=== PATIENT | female | born 1950 | race Caucasian/White ===

== ENCOUNTER 2023-12-22 08:06 | Outpatient (CLI) | payer OTHER, SELFPAY ==
[2023-12-22 08:28] LABS: Basophils Absolute Auto 0.1 K/mm3 (0.0-0.1); Basophils Percent Auto 0.6 % (0.2-1.2); Eosinophils Absolute Auto 0.3 K/mm3 (0-0.3); Eosinophils Percent Auto 3.4 % (0-4.4); Hematocrit 42.4 % (37.0-47.0); Hemoglobin 14.2 g/dL (12.0-15.0); Immature Granulocyte Absolute 0.02 K/mm3 (0.00-0.031); Immature Granulocyte Percent A 0.2 % (0-0.5); Lymphocytes Absolute Auto 2.42 K/mm3 (0.9-3.2); Lymphocytes Percent Auto 29.3 % (18.3-44.2); Mean Corpuscular HGB Conc 33.5 g/dl (32-36); Mean Corpuscular Hemoglobin 29.6 pg (26-34); Mean Corpuscular Volume 88.3 fl (80-100); Mean Platelet Volume 9.9 fl (7.4-10.4); Monocytes Absolute Auto 0.8 K/mm3 (0.1-0.6); Monocytes Percent Auto 9.8 % (2.6-8.5); Neutrophils Absolute Auto 4.7 K/mm3 (1.3-6.7); Neutrophils Percent Auto 56.7 % (45.5-73.1); Platelet Count Result 217 k/mm3 (150-375); Red Cell Distribution Width 12.8 % (11.5-14.5); White Blood Count 8.3 K/mm3 (4.5-10.0)
[2023-12-22 08:37] LABS: Alanine Aminotransferase 17 U/L (6-35); Alkaline Phosphatase 53 U/L (38-126); Anion Gap 3 mmol/L (8-16); Aspartate Amino Transferase 21 U/L (14-36); Bilirubin,Total 0.9 mg/dL (0.2-1.3); Blood Urea Nitrogen 11 mg/dL (7-17); Calcium 8.8 mg/dL (8.4-10.2); Carbon Dioxide 34 mmol/L (22-30); Chloride 102 mmol/L (98-107); Cholesterol 202 mg/dL (0-200); Estimated Glomerular Filt Rate > 60; Glucose 102 mg/dL (65-110); HDL Direct 38 mg/dL; Potassium 4.1 mmol/L (3.4-5.0); Sodium 139 mmol/L (137-145); Triglycerides 216 mg/dL (<150)
[2023-12-22 08:48] LABS: LDL Cholesterol Direct 125 mg/dL
== END 2023-12-22 08:07 | disposition home or self-care (01) ==
LOC: ANHLAB 08:09
PROVIDERS: PCP Family Medicine; Visit Provider Physician Assistant
DX: K21.9 Gastro-esophageal reflux disease without esophagitis (principal); I10 Essential (primary) hypertension; M19.90 Unspecified osteoarthritis, unspecified site; F41.1 Generalized anxiety disorder; F41.9 Anxiety disorder, unspecified; M85.80 Other specified disorders of bone density and structure, unspecified site
CPT/HCPCS: 36415; 80053; 80061; 82306; 84443; 85025

== ENCOUNTER 2025-06-23 11:59 | Outpatient (CLI) | payer OTHER, SELFPAY ==
--- NOTE | ~2025-06-23 | XR_ITS ---
EXAM: XR knee RT 3V DATE: 06/23/2025 12:44 HISTORY: M25.561 - Pain in right knee . COMPARISON: 06/23/2025. FINDINGS: Decreased mineralization. No fracture or dislocation. No lytic or blastic lesion. Mild med ial and lateral joint space narrowing. Mild tricompartmental osteophytosis. No erosion or periosteal change. Soft tissues within normal limits. IMPRESSION: Osteopenia. Mild right knee osteoarthritis. Reviewed, dictated and finalized at location K.
--- NOTE | ~2025-06-23 | XR_ITS ---
XR hip RT 2V w AP pelvis 06/23/2025 12:44 Indication: Pelvic and hip pain Procedure: AP pelvis and 2 views right hip Comparison: 09/10/2013 Findings: There is moderate-severe bilateral osteoarthritis of the hips which has progressed since pr ior study. No acute fracture or traumatic malalignment. Sacral foramen are symmetric. Impression: 1: Mild-moderate bilateral osteoarthritis of the hips. Reviewed, dictated and finalized at location A. Impression: 1: Mild-moderate bilateral osteoarthritis of the hips.
--- NOTE | ~2025-06-23 | XR_ITS ---
XR lumbar spine min 4V 06/23/2025 12:44 Indication: Low back pain Procedure: 5 views lumbar spine Comparison: No prior studies for comparison. Findings: There is disc narrowing at all lumbar levels most severe at L2-3 and L4-5. Vertebral body h eights are maintained. No acute fracture or subluxation. There is facet hypertrophy at L4-5 and L5-S1 . There are right renal stones. No evidence for spondylolisthesis. Impression: 1: Severe lumbar spondylosis. Reviewed, dictated and finalized at location A. Impression: 1: Severe lumbar spondylosis.
--- OUTSIDE RECORDS SUMMARY | 2025-06-23 12:04 | XMS_ITS | Clinical Summary ---
Author Organization [facility] Address [address] [place] [address] Care Team Providers Care Parts Advisor Name Role Phone Kristian Hill MD Primary Care Provider Unavail able Allergies Active Allergy Reactions Criticality Noted Date Comments Calcium Headache Low 08/05/2008 Chlorpheniramine Dizziness,Headache Low 08/05/2008 Dextromethorphan Dizziness,Headache Low 08/05/2008 Sulfa (Sulfonamide Antibiotics) Headache Low 07/2008 Medications dicyclomine (BENTYL) 20 mg Oral Tab Take 1 Tab by mouth 4 times daily before meals and at bedtime. For irritable bowel syndrome 30 Tab 1 8 Active alprazolam (XANAX) 0.5 mg Oral tablet Take 1 Tab by mouth 3 times daily as needed for Anxiety. 30 Tab 1 0 Active bisoprolol-hydr ochlorothiazide (ZIAC) 5-6.25 mg Oral tablet Take 1 Tab by mouth daily. For blood pressure 30 Tab 5 0 Active atorvastatin (LIPITOR) 20 mg Oral tablet Take 0.5 Tabs by mouth daily. for cholesterol 30 Tab 11 0 Active alendronate (FOSAMAX) 70 mg Oral tablet Take 1 Tab by mouth every 7 days. empty stomach before other meds,with 8oz of water, stay upright 30 min 4 Tab 11 0 Active Active Problems Problem Noted Date Diagnosed Date Hyperplastic colon polyp 12/02/2008 Overview (12/02/2008): 12/16/2004 Migraine 10/16/2008 Essential hypertension, benign 08/05/2008 Hyperlipidemia 08/05/2008 Generalized anxiety disorder 08/05/2008 IBS (irritable bowel syndrome) 08/05/2008 Tinnitus 08/05/2008 Resolved Problems Problem Noted Date Diagnosed Date Resolved Date Elevated blood pressure (not hypertension) 10/16/2008 03/03/2009 Immunizations Immunization Administration Dates Next Due (TDVAX)(7 YRS UP) TETANUS AN D DIPHTHERIA TOXOIDS, ADSORBED (2 LF OF TETANUS TOXOID AND 2 LF OF DIPHTHERIA TOXOID), 0.5ML (PF), IM 11/27/2001 Social History Tobacco Use Types Packs/Day Years Used Date Smoking Tobacco: Never Comments No Sex and Gender Information Value Date Recorded Sex Assigned at Not on file 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 Gender Identity Not on file Sexual Orientation Not on file Last Filed Vital Signs Vital Sign Reading Time Taken Comments Blood Pressure 120/70 04/07/2010 10:58 AM CDT Pulse 59 04/07/2010 10:58 AM CDT Temperature - - Respiratory Rate - - Oxygen Saturation - - Inhaled Oxygen Concentration - - Weight 55.8 kg (123 lb) 04/07/2010 10:58 AM CDT Height 161.9 cm (5' 3.75) 08/05/2008 9:35 AM CD T Body Mass Index 21.28 08/05/2008 9:35 AM CDT Plan of Treatment Health Maintenance Due Date Last Done Comments FIT-DNA Q 3 years 1997 FIT/FOBT Q 1 year 1997 Flex Sig/CT Colonography Q 5 years 1997 DTAP/TDAP/TD VACCINES (1 - Tdap) 11/28/2001 11/27/19 02 PNEUMOCOCCAL VACCINE 50+ YEA RS (1 of 1 - PCV) 2002 ZOSTER VACCINE (1 of 2) 2002 BREAST CANCER SCREENING 04/14/2011 04/14/20 10, 04/14/2010, 03/03/2009, Additional history exists COLORECTAL SCREENING 05/10/2015 05/10/2010, 05/10/2010, 11/27/2004 Colorectal Cancer Screening 05/10/2015 OSTEOPOROSIS SCREENING 2017 INFLUENZA VACCINE (#1) 2025 RSV VACCINE (60+ or ) (1 - 1-dose 75+ series) 2027 Procedures Procedure Name Priority Date/Time Associated Diagnosis Comments ENDOSCOPY, COLON, DIAGNOSTIC Routine 05/10/2010 MAMMO SCREENING BILAT Routine 04/14/2010 from Last 3 Months or Most Recently Relevant to Health Maintenance Results * ENDOSCOPY, COLON, DIAGNOSTIC (05/10/2010) Historical Provider GI PROCEDURE ORDERABLES Parvin l Result EXTERNAL LAB * MAMMO SCREENING BILAT (04/14/2010) Anatomical Region Laterality Modality Breast Bilateral Other Historical Provider MAMMO ORDERABLES Final Resul t from Last 3 Months or Most Recently Relevant to Health Maintenance Care Teams Parts Advisor Relationship Specialty Start Date End Date Kristian Hill MD PCP - General 03/04/09
--- OUTSIDE RECORDS SUMMARY | 2025-06-23 12:04 | XMS_ITS | Encounter Summary ---
Author Organization [employer] [facility] Address 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 Gender Identity Not on file Sexual Orientation Not on file documented as of this encounter Plan of Treatment Not on file documented as of this encounter Procedures Procedure Name Priority Date/Time Associated Diagnosis Comments US ABDOMEN LIMITED Timed Study 11/19/2008 8: 45 AM METER INSTALLER AND REMOVER documented in this encounter Results * US ABDOMEN LIMITED (11/19/2008 8:45 AM METER INSTALLER AND REMOVER) Anatomical Region Laterality Modality Abdomen Other 11/19/2008 8:45 AM METER INSTALLER AND REMOVER Narrative 11/19/2008 10:13 AM METER INSTALLER AND REMOVER [facility] [address], [place] [address] Admit Date: 11/19/2008 NIKIA CAROLINA Sex: F Admit Prov: ELZBIETADIANN Date: 1950 Primary Care Prov: ELZBIETA DIANN Rivers CMRN: [id number] Room: [facility] SSN: [id number] IMAGING SERVICES Ordering Prov: N/A Accession Number: [id number] Interpretation ULTRASOUND ABDOMEN LIMITED 11/19/2008 History: Right upper quadrant pain. FINDINGS: Limited ultrasound examination of the upper abdomen was performed. The gallbladder is free of stones and the wall thickness is normal. The common bile duct is normal in caliber. The liver is normal in size, contour and echogenicity and there are no focal defects or intrahepatic biliary dilation. Portal and hepatic venous flow appears normal. There is no pancreatic mass or inflammation. There is no sign of ascites. IMPRESSION: Normal exam. . Dictated by: USHA CANELA 11/19/2008 08:50 Electronically signed by: USHA CANELA 11/19/2008 10:11 Transcribed: 11/19/2008 09:48 AMK Procedure Note Usha Canela MD - 11/19/2008 [facility] [address], [place] [address] Admit Date: 11/19/2008 NIKIA CAROLINA Sex: F Admit Prov: DIANN HILL Date: 1950 Primary Care Prov: DIANN HILL CMRN: [id number] Room: [facility] SSN: [id number] IMAGING SERVICES Ordering Prov: N/A Interpretation ULTRASOUND ABDOMEN LIMITED 11/19/2008 History: Right upper quadrant pain. FINDINGS: Limited ultrasound examination of the upper abdomen was performed. The gallbladder is free of stones and the wall thicknessis normal. The common bile duct is normal in caliber. The liver isnormal in size, contour and echogenicity and there are no focal defects or intrahepatic biliary dilation. Portal and hepatic venous flowappears normal. There is no pancreatic mass or inflammation. There is no signof ascites. IMPRESSION: Normal exam. . Dictated by: USHA CANELA 11/19/2008 08:50 Electronically signed by: USHA CANELA 11/19/2008 10:11 Transcribed: 11/19/2008 09:48 AMK Diann Hill MD ORDERABLES Final Result documented in this encounter Visit Diagnoses Diagnosis Abdominal pain, right upper quadrant documented in this encounter Care Teams Multi Media Specialist Relationship Specialty Start Date End Date Diann Hill MD PCP - General 03/04/09 documented as of this encounter
--- OUTSIDE RECORDS SUMMARY | 2025-06-23 12:04 | XMS_ITS | Encounter Summary ---
Author Organization [facility] Address 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 SHE WILL WED WITH AN UPDATE documented in this encounter Plan of Treatment Not on file documented as of this encounter Procedures Procedure Name Priority Date/Time Associated Diagnosis Comments NM HEPATOBIL W PHARM INTERV Timed Study 11/25/2008 1:00 PM MUSCULOSKELETAL PHYSIOTHERAPIST documented in this encounter Results * NM HEPATOBIL W EJECT FRACTION (11/25/2008 1:00 PM MUSCULOSKELETAL PHYSIOTHERAPIST) Anatomical Region Laterality Modality Abdomen Other 11/25/2008 1:00 PM MUSCULOSKELETAL PHYSIOTHERAPIST Narrative 11/25/2008 2:55 PM MUSCULOSKELETAL PHYSIOTHERAPIST [facility] [address], [place] [address] Admit Date: 11/25/2008 NIKIA CAROLINA Sex: F Admit Prov: ELZBIETA DIANN Rivers Date: 1950 Primary Care Prov: DIANN HILL CMRN: [id number] [id number] Ordering Prov: N/A Accession Number: [id number] Interpretation HEPATOBILIARY STUDY WITH CCK CHALLENGE HISTORY: 58-year-old female with abdominal pain. PROCEDURE: After injection with 5.3 mCi of [id number], the patient's abdomen was imaged dynamically in the anterior planar view at 1 minute per frame for 44 minutes. Subsequently, the patient was then injected with 1.1 ug of Cholecystokinin over 30 minutes; dynamic imaging was continued during that time. FINDINGS: Correlation is made with ultrasound imaging dated 11/19/2008. On the pre CCK images, hepatic tracer uptake is prompt and normal. The gallbladder begins to fill with activity by 11 minutes, and the common bile duct is visualized by 9 minutes. Tracer activity is present within the duodenal sweep by 47 minutes. There are no findings on this phase of the study compatible with acute cholecystitis or biliary ductal obstruction. On the post CCK images, there is prompt emptying of tracer activity from the gallbladder. The gallbladder ejection fraction is calculated to be 99 %, a normal value. There are no findings on this portion of the study compatible with chronic or acalculous cholecystitis. IMPRESSION: 1. Normal hepatobiliary study with CCK challenge. 2. No evidence for acute or chronic cholecystitis. . Dictated by: DENNIS AMADO 11/25/2008 14:53 Electronically signed by: DENNIS AMADO 11/25/2008 14:54 Procedure Note Dennis Amado - 11/25/2008 [id number] [place], [place] [address] Admit Date: 11/25/2008 NIKIA CAROLINA Sex: F Admit Prov: DIANN HILL Date: 1950 Primary Care Prov: DIANN HILL CMRN: [id number] [id number] [facility] Ordering Prov: N/A Interpretation HEPATOBILIARY STUDY WITH CCK CHALLENGE HISTORY: 58-year-old female with abdominal pain. PROCEDURE: After injection with 5.3 mCi of [id number], the patient's abdomenwas imaged dynamically in the anterior planar view at 1 minute per framefor 44 minutes. Subsequently, the patient was then injected with 1.1 ug of Cholecystokinin over 30 minutes; dynamic imaging was continued duringthat time. FINDINGS: Correlation is made with ultrasound imaging dated 11/19/2008. On thepre CCK images, hepatic tracer uptake is prompt and normal. Thegallbladder begins to fill with activity by 11 minutes, and the common bile ductis visualized by 9 minutes. Tracer activity is present within theduodenal sweep by 47 minutes. There are no findings on this phase of thestudy compatible with acute cholecystitis or biliary ductal obstruction. On the post CCK images, there is prompt emptying of tracer activityfrom the gallbladder. The gallbladder ejection fraction is calculated tabatha 99 %, a normal value. There are no findings on this portion of thestudy compatible with chronic or acalculous cholecystitis. IMPRESSION: 1. Normal hepatobiliary study with CCK challenge. 2. No evidence for acute or chronic cholecystitis. . Dictated by: DENNIS AMADO 11/25/2008 14:53 Electronically signed by: DENNIS AMADO 11/25/2008 14:54 us Diann Hill MD NM ORDERABLES Final Result documented in this encounter Visit Diagnoses Not on filedocumented in this encounter Care Teams Coffee Host Relationship Specialty Start Date End Date Diann Hill MD PCP - General 03/04/09 documented as of this encounter
== END 2025-06-23 12:00 | disposition home or self-care (01) ==
PROVIDERS: PCP Family Medicine
DX: M85.861 Other specified disorders of bone density and structure, right lower leg (principal); M17.11 Unilateral primary osteoarthritis, right knee; M47.896 Other spondylosis, lumbar region; M16.0 Bilateral primary osteoarthritis of hip
CPT/HCPCS: 72110; 73502; 73562

== ENCOUNTER 2025-08-28 10:28 | Outpatient (CLI) | payer OTHER, SELFPAY ==
--- NOTE | ~2025-08-28 | DEXA_ITS ---
Bone Density Report Name: MARÍA DE LOS SANTOS Age: 75 Sex: Female Ethnicity: White Date of : 1950 Indication: osteopenia; monitoring treatment; parental hip fracture; height loss; hysterectomy; rheumatoid arthritis; Referring Provider: IVONNE SHARPE Study: Bone densitometry was performed. Exam Date: August 28, 2025 Accession number: [id number] Bone Density: Region BMD T-score Z-score Classification AP Spine(L1-L4) 0.825 -2.0 0.3 Osteopenia Femoral Neck (Left) 0.758 -0.8 1.2 Normal Total Hip (Left) 0.716 -1.8 -0.2 Osteopenia Femoral Neck (Right) 0.680 -1.5 0.5 Osteopenia Total Hip (Right) 0.721 -1.8 -0.1 Osteopenia Total Hip Mean 0.719 -1.8 -0.2 Osteopenia World Health Organization criteria for BMD impression classify patients as: Normal (T-score at or above -1.0), Osteopenia (T-score between -1.0 and -2.5), or Osteoporosis (T-score at or below -2.5). 10-year Fracture Risk: FRAX not reported because: Treated for osteoporosis Previous Exams: -- Region Exam Age BMD T-score BMD Change BMD Change Date g/cm2 vs Baseline vs Previous -- AP Spine (L1-L4) 08/28/2025 75 0.825 -2.0 -2.2%# -1.2%# 10/06/2015 65 0.835 -1.9 -1.0% -1.0% 08/02/2012 62 0.844 -1.8 Total Hip(Left) 08/28/2025 75 0.716 -1.8 0.8%# -3.6%# 10/06/2015 65 0.743 -1.6 4.6%* 4.6%* 08/02/2012 62 0.710 -1.9 Total Hip(Right) 08/28/2025 75 0.721 -1.8 -5.4%# -8.4%# 10/06/2015 65 0.787 -1.3 3.3% 3.3% 08/02/2012 62 0.762 -1.5 -- *Denotes significance at 95% confidence level, LSC for AP Spine = 0.022 g/cm2, LSC for Total Hip = 0.027 g/cm2 # Denotes dissimilar scan types or analysis methods Clinical Information Provided by Patient: Parent has had a hip fracture Has rheumatoid arthritis Is being treated for osteoporosis Has used the following medications: Fosamax (i.e. alendronate), Vitamin D Has the following medical conditions: Hysterectomy Patient maximum height was 64 Menopause Age: 35 No regular weight bearing exercise Drinks caffeinated beverages Onset of menses at age 18 Number of children 3 Impression: The patient has low bone mass, based on the Total Spine T-score. The patient has risk factors, including: parental hip fracture. Unable to evaluate interval change due to the use of different scan modes. Discussion: PATIENT UNDER TREATMENT WITH NO SIGNIFICANT BMD LOSS SINCE LAST EXAM. In an untreated patient, BMD typically declines with age. A lack of decline or gain is usually a sign that treatment is efficacious and fracture risk is reduced. It is important to ask patients whether they are taking their medications and to encourage continued and appropriate compliance with their osteoporosis therapies to reduce fracture risk. It is also important to review their risk factors and encourage appropriate calcium and vitamin D intakes, exercise, fall prevention and other lifestyle measures. Follow-Up: Consider a repeat BMD and Vertebral Fracture Assessment (VFA) exam in 2 years or sooner if medically necessary, to reassess this patient's status. Reported by: ANGÉLICA on 08/28/2025 10:59:00 AM. Reviewed, dictated and finalized at location A.
--- NOTE | ~2025-08-28 | MM_ITS ---
EXAMINATION: MM screening oscar BI w viral HISTORY: Screening TECHNIQUE: Craniocaudal and mediolateral oblique 3-D tomosynthesis images were obtained and synthetic 2-D images were generated. CAD analysis was submitted and interpreted. COMPARISON: 03/23/2016 BREAST PARENCHYMAL COMPOSITION: Not dense: There are scattered areas of fibroglandular density. FINDINGS: There is no evidence of suspicious mass, calcification, or architectural distortion to suggest malignancy in either breast. There has been no suspicious interval change. IMPRESSION: 1. No mammographic evidence of malignancy. 2. Recommend routine screening mammography in one year. BI-RADS Category 1: Negative Reviewed, dictated and finalized at location B.
== END 2025-08-28 10:29 | disposition home or self-care (01) ==
LOC: MICIMG 10:30
PROVIDERS: PCP Family Medicine; Visit Provider Nurse Practitioner Adult Health
DX: Z12.31 Encounter for screening mammogram for malignant neoplasm of breast (principal); M85.89 Other specified disorders of bone density and structure, multiple sites; Z78.0 Asymptomatic menopausal state
CPT/HCPCS: 77063; 77067; 77080

== ENCOUNTER 2025-10-14 09:46 | Outpatient (CLI) | payer OTHER, SELFPAY ==
--- NOTE | 2025-10-14 10:41 | ECG_ITS ---
Test Date: 2025-10-14 11:03:33 Measurements Intervals [place] Rate: 51 P: 61 WI: 192 QRS: -19 QRSD: 85 T: 0 QT: 450 QTc: 418 Interpretive Statements SINUS BRADYCARDIA NONSPECIFIC T-WAVE ABNORMALITY CANNOT RULE OUT ANTERIOR MYOCARDIAL INFARCTION ABNORMAL ECG Electronically Signed On 10-14-2025 15:54:38 CAR DESIGNER by Bacilio Mitchell M.D.
[2025-10-14 12:10] LABS: Hematocrit 41.5 % (37.0-47.0); Hemoglobin 14.0 g/dL (12.0-15.0); Immature Granulocyte Percent A 0.6 % (0-0.5); Lymphocytes Absolute Auto 2.11 K/mm3 (0.9-3.2); Mean Corpuscular HGB Conc 33.7 g/dl (32-36); Mean Corpuscular Hemoglobin 30.0 pg (26-34); Mean Corpuscular Volume 89.1 fl (80-100); Nucleated Red Blood Cells Absolute Auto 0.000 K/mm3 (0.0-0.012); Nucleated Red Blood Cells Perc 0.0 % (0.0-0.2); Platelet Count Result 246 k/mm3 (150-375); Red Blood Count 4.66 M/mm3 (4.2-5.4); White Blood Count 8.5 K/mm3 (4.5-10.0)
[2025-10-14 12:17] LABS: Albumin Level 4.4 g/dL (3.5-5.1)
[2025-10-14 12:22] LABS: Anion Gap 8 mmol/L (4-12); Blood Urea Nitrogen 18 mg/dL (7-17); Calcium 9.2 mg/dL (8.4-10.2); Carbon Dioxide 34 mmol/L (22-30); Chloride 98 mmol/L (98-107); Estimated Glomerular Filt Rate > 60; Glucose 76 mg/dL (65-110); Potassium 3.2 mmol/L (3.4-5.0); Sodium 140 mmol/L (137-145)
[2025-10-14 12:49] LABS: Hemoglobin A1C 5.0 % (<5.7)
[2025-10-14 13:22] LABS: MRSA (PCR) NOT DETECTED (NOT DETECTE)
--- OUTSIDE RECORDS SUMMARY | 2025-10-14 17:19 | XMS_ITS | Encounter Summary ---
Author Organization [facility] Address [address] [place] [address] Care Team Providers Care Rabbit Breeder Name Role Phone Bacilio Garrison MD Primary Care Provider [phone] Zion Prasad LOG FEEDER Unavailable [phone] Lance Dial MD Primary Care Provider [phone] Anders Hanks MD Primary Care Provider [phone] Encounter Details Date Type Department Care Team (Late st Contact Info) Description 02/18/2019 CHILDREN'S COUNSELOR ONLY [facility] Medical Group Priority Care - [address] [place] [address] Scanned, Documents Social History Tobacco Use Types Packs/Day Years Used Date Smoking Tobacco: Never Smokeless Tobacco: Never Alcohol Use Standard Drinks/Week Comments No 0 (1 standard drink = 0.6 oz pur e alcohol) AUDIT-C Answer Date Recorded Frequency of Alcohol Consumption Never 01/01/2019 Average Number of Drinks Not on file 019 Frequency of Binge Drinking Not on file 03/2019 Comments Unknown Sex and Gender Information Value Date Recorded Sex Assigned at Not on file Legal Sex Female 8:17 PM CDT Gender Identity Not on file Sexual Orientation Not on file documented as of this encounter Progress Notes * Zscanned, Documents - 02/18/2019 12:00 AM CDT NIKIA CAROLINA MD: ACCT: [id number] ADMIT/SERVICE DATE: 02/18/19 DISCHARGE DATE: 02/18/19 : 1950 PT TYPE: DEP SDC SEX: F ORD SITE: [facility] REPORT OF PATHOLOGICAL EXAMINATION DATE OF SURGERY: 02/18/2019 SURGICAL PATH NO: [id number] DATE OBTAINED: 02/18/2019 DATE RETURNED: 02/19/2019 CHART DOCUMENT I. HEMORRHOIDS: - EXTERNAL HEMORRHOIDS. SPECIMEN: HEMORRHOIDS. GROSS EXAMINATION: THE SPECIMEN IS RECEIVED IN FORMALIN LABELED WITH THE PATIENT'S NAME AND HEMORRHOIDS. THE SPECIMEN CONSISTS OF FIVE FRAGMENTS OF RED/ORANTES SOFT TISSUE RANGING IN SIZE FROM 1 CM UP TO 2.5. ONE POSTAGE MACHINE OPERATOR SECTION IS BISECTED AND SUBMITTED ENTIRELY IN SINGLE CASSETTE. TD/MKP 02/18/2019 02/18/2019 02:39 P MICROSCOPIC EXAMINATION: SECTIONS REVEAL EXTERNAL HEMORRHOIDS. THE TISSUE IS LINED BY BENIGN SQUAMOUS EPITHELIUM. THE UNDERLYING TISSUE SHOWS MARKEDLY DISTENDED BLOOD VESSELS WITH SLIGHT CHRONIC INFLAMMATION. ELECTRONICALLY SIGNED BY DARLING ENRIQUEZ MD 02/19/2019 02:35 P DT: SALONI/RC:02/19/2019 DOC NO: [id number] documented in this encounter Plan of Treatment Not on file documented as of this encounter Visit Diagnoses Not on filedocumented in this encounter Care Teams Rabbit Breeder Relationship Specialty Start Date End Date Bacilio Garrison MD PCP - General INTERNAL MEDICINE 11/01/18 12/30/21 [place] [address] [place] [address] PCP - General FAMILY PRACTICE 12/31/21 01/07/24 Anders Hanks MD [address] [place], [place] [id number] PCP - General FAMILY PRACTICE 01/08/24 Zion Prasad NP [address] [place] [address] Advanced Practice Provider Psychiatry 05/26/21 documented as of this encounter
--- OUTSIDE RECORDS SUMMARY | 2025-10-14 17:19 | XMS_ITS | Clinical Summary ---
Author Organization [facility] Address [address] [place] [address] Care Team Providers Care Data Solutions Architect Name Role Phone Zion Prasad ASSEMBLER HANDBAGS Unavailable [phone] Lena Hanks MD Primary Care Provider [phone] Allergies Active Allergy Reactions Criticality Noted Date Comments Calcium Headache Low 08/05/2008 Chlorpheniramine Dizziness,Headache Low 08/05/2008 Dextromethorphan Dizziness,Headache Low 08/05/2008 Duloxetine Hcl Anxiety Low 01/08/2018 Sertraline Vomiting Low 01/08/2018 Sulfa Antibiotics Headache Low 01/08/2018 Medications diclofenac sodium 1 % gelIndications:Rig ht hip pain,Primary osteoarthritis of right knee,Chronic pain of both shoulders Apply 2 g topically 4 (four) times daily. Apply to shoulders, 4 g to knee. 100 g 5 09/06/20 19 Active Ibuprofen 200 MG capsule Take 200 mg by mouth every 6 (six) hours as needed. Active ALPRAZolam (XANAX) 0.5 MG tabletIndications: Generalized anxiety disorder Take 1 tablet (0.5 mg total) by mouth daily as needed. 30 tablet 06/21/20 23 Active alendronate (FOSAMAX) 70 MG/75ML solutionIndication s:Age-related osteoporosis without current pathological fracture Take 75 mLs (70 mg total) by mouth every 7 days. 299.88 mL 07/13/20 23 Active Additional Information Patient not taking.Reported on 01/26/2024 escitalopram (LEXAPRO) 10 MG tabletIndications: Generalized anxiety disorder TAKE 2 TABLETS BY MOUTH EVERY DAY 180 tablet 1 09/04/20 23 Active bisoprolol-hydroCH LOROthiazide (ZIAC) 5-6.25 MG tabletIndications: Essential hypertension take 1 tablet by mouth every day 90 tablet 01/08/20 24 Active pantoprazole EC (PROTONIX) 40 MG tabletIndications: Esophageal stricture TAKE 1 TABLET BY MOUTH EVERY DAY 90 tablet 01/08/20 25 Active Active Problems Problem Noted Date Diagnosed Date Esophageal stricture 01/29/2024 Personal history of colonic polyps 03/22/2022 Overview (03/22/2022): Added automatically from request for surgery [id number] Age-related osteoporosis wit hout current pathological fracture 11/22/2021 BMI 23.0-23.9, adult 09/06/2019 Esophageal diverticulum 01/11/2018 Esophageal dysmotility 01/11/2018 Pharyngoesophageal dysphagia 01/08/2018 Generalized anxiety disorder 08/28/2017 Overview (11/05/2018): Transitioned From: Anxiety Primary osteoarthritis of right knee 05/31/2017 Spastic colon 05/31/2017 Medication management 11/22/2016 Essential hypertension 11/22/2016 Tinnitus, bilateral 11/22/2016 Migraine 10/16/2008 Resolved Problems Problem Noted Date Diagnosed Date Resolved Date Other hemorrhoids 01/01/2019 09/06/2019 Wears glasses 06/19/2017 08/07/2020 Right hip pain 05/11/2017 06/21/2020 Knee pain, right anterior 12/30/2016 Sciatica of right side 11/22/201609/06 Hyperplastic colon polyp 12/02/2008 Overview (09/06/2019): Overview: 12/16/2004 Immunizations Immunization Administration Dates Next Due Fluzone High Dose (IIV, triv alent, 0.5mL) 10/04/2024 Fluzone High Dose - >Age 65 (Prefilled Syringe) 09/02/2022,08/23/2021,09/07/2020,2018,11/05/2018 Influenza (Generic) 09/15/2013 Influenza Adult (Generic) 09/25/2023,09/03/2022, 09/15/2013 PFIZER COVID-19 (ORIGINAL FORMULATION, PURPLE CAP) mRNA, LNP-S, PF, 30 MCG/0.3 ML DOSE 09/03/2022 PFIZER COVID-19 BIVALENT (12 +) mRNA, LNP-S, PF, 30 MCG/0.3 ML DOSE 09/02/2022 Pneumococcal (Pneumovax 23) 01/08/2020 Pneumococcal (Prevnar 13) 11/05/2018 Td (Tenivac) preservative free 11/27/2001 Family History Medical History Relation Comments Cancer Brother tumor in back, l aurelia cancer, cancer all over body Cancer Father Breast Cancer Mother Diabetes Mother Hypertension Mother Relation Status Comments Brother Father Mother Social History Tobacco Use Types Packs/Day Years Used Date Smoking Tobacco: Never Smokeless Tobacco: Never Tobacco Cessation:Counseling Given: No Comments:no tobacco hx Alcohol Use Standard Drinks/Week Comments Never 0 (1 standard drink = 0.6 oz pur e alcohol) AUDIT-C Answer Date Recorded Frequency of Alcohol Consumption Never 01/01/2019 Average Number of Drinks Not on file 019 Frequency of Binge Drinking Not on file 03/2019 PHQ-2 Answer Date Recorded Patient Health Questionnaire-2 Score 0 01/26/2024 Comments No Sex and Gender Information Value Date Recorded Sex Assigned at Not on file Legal Sex Female 8:17 PM CDT Gender Identity Not on file Sexual Orientation Not on file Last Filed Vital Signs Vital Sign Reading Time Taken Comments Blood Pressure 124/56 03/08/2024 11:58 AM CDT Pulse 62 03/08/2024 11:58 AM CDT Temperature 36.2 C (97.1 F) 03/08/2024 9:05 AM CDT Respiratory Rate 18 03/08/2024 11:58 AM CDT Oxygen Saturation 98% 03/08/2024 11:58 AM CDT Inhaled Oxygen Concentration - - Weight 60.8 kg (134 lb 0.6 oz) 03/08/2024 9:05 A M CDT Height 162.6 cm (5' 4.02) 03/08/2024 9:05 AM CD T Body Mass Index 23 03/08/2024 9:05 AM CDT Plan of Treatment Health Maintenance Due Date Last Done Comments Hepatitis C 1970 DTaP, Tdap and Td Vaccines (1 - Tdap) 11/28/2001 11/27/2001 Zoster Vaccines (1 of 2) 2002 Annual Medicare Wellness Visit 2017 PHQ-2 (Physician [place]) 11/27/2024 01/26/2024 COVID-19 Vaccine ( season) 2025 10/04/2024, 10/20/2023, 09/03/2022, Additional history exists Influenza Adult (#1) 2025 10/04/2024, 09/25/2023, 09/03/2022, Additional history exists Mammogram Screening 01/08/2026 01/08/2024, 02/10/2022, 08/21/2020, Additional history exists RSV Immunization or 60+ Years (1 - 1-dose 75+ series) 2027 Colorectal Cancer Screening Colonoscopy (10 Years) 04/29/2032 04/29/2022, 09/21/2016, 09/21/2016 EGD-Duarte's Surveillance Discontinued 09/21/2016 Pneumococcal Vaccine: 50+ Years Completed 01/08/2020, 11/05/2018 Dexa Scan (General) Completed 01/12/2022, 0 Hepatitis A Vaccines Aged Out No long er eligible based on patient's age to complete this topic Meningococcal B Vaccine Aged Out No l onger eligible based on patient's age to complete this topic Meningococcal Vaccine Aged Out No ted linda eligible based on patient's age to complete this topic RSV Immunizations Under 20 Months Aged Out No longer eligible based on patient's age to complete this topic Procedures Procedure Name Priority Date/Time Associated Diagnosis Comments MG SCREENING W NIKKI NAKITA DIGI Routine 01/08/2024 8:20 AM LPN PRIVATE DUTY Encounter for screening mammogram for breast cancer BONE DENSITY/DEXA Routine 01/12/2022 10: 05 AM LPN PRIVATE DUTY Medication management Age-related osteoporosis without current pathological fracture COLONOSCOPY/EGD GENERIC (SCAN ORDER) Routine 09/21/2016 from Last 3 Months or Most Recently Relevant to Health Maintenance Results * MG SCREENING W NIKKI NAKITA DIGI (01/08/2024 8:20 AM LPN PRIVATE DUTY) Anatomical Region Laterality Modality Breast Bilateral Mammography 01/08/2024 2:37 PM LPN PRIVATE DUTY Narrative 01/08/2024 2:59 PM LPN PRIVATE DUTY EXAMINATION: Digital bilateral screening mammogram with 3-D tomosynthesis EXAM DATE/TIME: 01/08/2024 8:05 AM REASON FOR EXAM: screening for breast cancer COMPARISON: Priors including January 2022, July 2020, January 2019. TECHNIQUE: Digital screening mammography of both breasts was performed in addition to 3-D Tomosynthesis technique. This study was read with the assistance of a computer-aided detection system. TISSUE DENSITY: The breast tissue is heterogeneously dense, which may obscure small masses. FINDINGS: No suspicious masses, malignant appearing calcifications, skin thickening or other abnormalities are present. No significant change from the prior exam. =====IMPRESSION:===== No mammographic findings suggestive of malignancy ASSESSMENT: ACR BI-RADS 2 - BENIGN FINDING(S) Recommendation: 1: Routine Screening Bilateral COMMENTS: Ordered By: LENA JULIEN Interpreted By: Nito Byrne MD, 01/08/2024 2:37 PM Lena Julien MD MAMMO Final Result * BONE DENSITY/DEXA (01/12/2022 10:05 AM LPN PRIVATE DUTY) Anatomical Region Laterality Modality Bone Bone Density 01/12/2022 10:1 7 AM LPN PRIVATE DUTY Impressions 01/12/2022 10:20 AM LPN PRIVATE DUTY IMPRESSION: 1. Slight interval improvement in bone density since 11/23/2020, as detailed above. 2. Please above comments for detailed description. Ordered By: JUAN JOSE DIAL Interpreted By: Armida Tamayo, 01/12/2022 10:17 AM Narrative 01/12/2022 10:20 AM LPN PRIVATE DUTY BONE DENSITY/DEXA EXAM DATE/TIME: 01/12/2022 9:54 AM CLINICAL HISTORY: 71-year-old female with history of osteoporosis. Follow-up. COMPARISON: 11/23/2020 FINDINGS: L2-L4: Bone mineral density 0.84 g/sq cm. Prior study 0.79 T score -2.2. Prior study -2.6. Z score 0.0. Prior study -0.5. Very osteopenic range. Moderate fracture risk. Left femoral neck: Bone mineral density 0.76 g/sq cm. Prior study 0.74 T score -0.7. Prior study -0.9. Z score 1.1. Prior study 0.8. Normal young adult female range. Very low fracture risk. Procedure Note Sigifredo Tamayo MD - 01/12/2022 BONE DENSITY/DEXA EXAM DATE/TIME: 01/12/2022 9:54 AM CLINICAL HISTORY: 71-year-old female with history of osteoporosis.Follow-up. COMPARISON: 11/23/2020 FINDINGS: L2-L4: Bone mineral density 0.84 g/sq cm. Prior study 0.79 T score -2.2. Prior study -2.6. Z score 0.0. Prior study -0.5. Very osteopenic range. Moderate fracture risk. Left femoral neck: Bone mineral density 0.76 g/sq cm. Prior study 0.74 T score -0.7. Prior study -0.9. Z score 1.1. Prior study 0.8. Normal young adult female range. Very low fracture risk. IMPRESSION: 1. Slight interval improvement in bone density since 11/23/2020, asdetailed above. 2. Please above comments for detailed description. Ordered By: JUAN JOSE DIAL Interpreted By: Armida Tamayo, 01/12/2022 10:17 AM us Juan Jose Dial MD DEXA Final Resul t * COLONOSCOPY/EGD (09/21/2016) us Documents Scanned SCANNING Edited Result - Final from Last 3 Months or Most Recently Relevant to Health Maintenance Insurance [employer] Care Teams Data Solutions Architect Relationship Specialty Start Date End Date Lena Hanks MD [address] [place] [place] [address] PCP - General FAMILY PRACTICE 01/08/24 iZon Prasad NP [address] [place] [facility] [address] [place] [id number] Advanced Practice Provider Psychiatry 05/26/21
--- OUTSIDE RECORDS SUMMARY | 2025-10-14 17:19 | XMS_ITS | Encounter Summary ---
Author Organization [employer] Address [address] [place] [address] Care Team Providers Care Hog Pusher Name Role Phone Diann Hill MD Primary [...] on file Legal Sex Female 5:36 AM STEAM BOX OPERATOR Gender Identity Not on file Sexual Orientation [...] PHARM INTERV Timed Study 11/25/2008 1:00 PM STEAM BOX OPERATOR documented in this encounter Results * NM HEPATOBIL W EJECT FRACTION (11/25/2008 1:00 PM STEAM BOX OPERATOR) Anatomical Region Laterality Modality Abdomen Other 11/25/2008 1:00 PM STEAM BOX OPERATOR Narrative 11/25/2008 2:55 PM STEAM BOX OPERATOR [facility] [address] [place], [place] [address] Admit Date: 11/25/2008 NIKIA CAROLINA Sex: F Admit Prov: ELZBIETA DIANN Rivers Date: 1950 Primary Care Prov: DIANN HILL CMRN: [id number] [facility] [id number] IMAGING SERVICES Ordering Prov: N/A Accession Number: [id number] Interpretation HEPATOBILIARY STUDY WITH CCK CHALLENGE HISTORY: 58-year-old female with abdominal pain. PROCEDURE: After injection with 5.3 mCi of [id number], the patient's abdomen was imaged dynamically in [...] 14:54 Procedure Note Dennis Amado - 11/25/2008 [address] [place], [place] [address] Admit Date: 11/25/2008 NIKIA CAROLINA Sex: F Admit Prov: DIANN HILL Date: 1950 Primary Care Prov: DIANN HILL CMRN: [id number] [facility] [id number] IMAGING SERVICES Ordering Prov: N/A Interpretation HEPATOBILIARY STUDY WITH CCK CHALLENGE HISTORY: 58-year-old female with abdominal pain. PROCEDURE: After injection with 5.3 mCi of [id number], the patient's abdomenwas imaged dynamically in the [...] on filedocumented in this encounter Care Teams Hog Pusher Relationship Specialty Start Date End Date Diann Hill MD PCP - General 03/04/09 documented as of this encounter
--- OUTSIDE RECORDS SUMMARY | 2025-10-14 17:19 | XMS_ITS | Encounter Summary ---
Author Organization [facility] Address [facility] [place] [address] Care Team Providers Care Wood And Hardware Outfitter Name Role Phone PrasadZion SIGN CARPENTER Unavailable [phone] Lance Dial MD Primary Care Provider [phone] Anders Hanks MD Primary Care Provider [phone] Encounter Details Date Type Department Care Team (Late st Contact Info) Description 02/14/2023 Therapy Plan [facility] [address] [place], [place] [id number] [place] [address] [place], [place] [id number] Social History Tobacco Use Types Packs/Day Years Used Date Smoking Tobacco: Never Smokeless Tobacco: Never Comments:no tobacco hx Alcohol Use Standard Drinks/Week Comments Never 0 (1 standard drink = 0.6 oz pur e alcohol) AUDIT-C Answer Date Recorded Frequency of Alcohol Consumption Never 01/01/2019 Average Number of Drinks Not on file 019 Frequency of Binge Drinking Not on file 03/2019 PHQ-2 Answer Date Recorded Patient Health Questionnaire-2 Score 0 01/20/2023 Comments No Sex and Gender Information Value Date Recorded Sex Assigned at Not on file Legal Sex Female 8:17 PM CDT Gender Identity Not on file Sexual Orientation Not on file COVID-19 Exposure Response Date Recorded In the last 10 days, have yo u been in contact with someone who was confirmed or suspected to have Coronavirus/COVID-19? No / Unsure 01/23/2023 7:49 AM PYROTECHNIC MIXER documented as of this encounter Plan of Treatment Not on file documented as of this encounter Visit Diagnoses Diagnosis Age-related osteoporosis without current pathological fracture- Primary Senile osteoporosis documented in this encounter Additional Health Concerns Assessment Noted Time PHQ-9 Depression Total Score: 0 01/11/20 22 8:21 AM PYROTECHNIC MIXER documented as of this encounter Care Teams Wood And Hardware Outfitter Relationship Specialty [place] [address] [place] [address] PCP - General FAMILY PRACTICE 12/31/21 01/07/24 Anders Hanks MD [address] [place] [address] PCP - General FAMILY PRACTICE 01/08/24 Zion Prasad NP [address] [place] [address] [address] Advanced Practice Provider Psychiatry 05/26/21 documented as of this encounter
--- OUTSIDE RECORDS SUMMARY | 2025-10-14 17:19 | XMS_ITS | Encounter Summary ---
Author Organization [facility] Address [address] [place] [address] Care Team Providers Care Auto Transport Driver Name Role Phone Diann Hill MD Primary [...] on file Legal Sex Female 5:36 AM JUNIOR ART DIRECTOR Gender Identity Not on file Sexual Orientation Not on file documented as of this encounter Plan of Treatment Not on file documented as of this encounter Procedures Procedure Name Priority Date/Time Associated Diagnosis Comments US ABDOMEN LIMITED Timed Study 11/19/2008 8: 45 AM JUNIOR ART DIRECTOR documented in this encounter Results * US ABDOMEN LIMITED (11/19/2008 8:45 AM JUNIOR ART DIRECTOR) Anatomical Region Laterality Modality Abdomen Other 11/19/2008 8:45 AM JUNIOR ART DIRECTOR Narrative 11/19/2008 10:13 AM JUNIOR ART DIRECTOR [facility] [address] [place], [place] [address] Admit Date: 11/19/2008 NIKIA CAROLINA Sex: F Admit Prov: ELZBIETADIANN Date: 1950 Primary Care Prov: ELZBIETA DIANN Rivers CMRN: [id number] Room: [facility] SSN: [id number] IMAGING SERVICES Ordering Prov: N/A Accession Number: [id number] Interpretation ULTRASOUND ABDOMEN LIMITED 11/19/2008 History: Right [...] Procedure Note Usha Canela MD - 11/19/2008 [facility] [address] [place], [place] [address] Admit Date: 11/19/2008 NIKIA CAROLINA Sex: F Admit Prov: DIANN HILL Date: 1950 Primary Care Prov: DIANN HILL CMRN: [id number] Room: [facility] SSN: [id number] IMAGING SERVICES Ordering Prov: N/A Interpretation ULTRASOUND [...] quadrant documented in this encounter Care Teams Auto Transport Driver Relationship Specialty Start Date End Date Diann Hill MD PCP - General 03/04/09 documented as of this encounter
--- OUTSIDE RECORDS SUMMARY | 2025-10-14 17:19 | XMS_ITS | Clinical Summary ---
Author Organization [facility] Address [address] [place] [address] Care Team Providers Care Competitive Intelligence Analyst Name Role Phone Kristian Hill MD Primary [...] on file Legal Sex Female 5:36 AM REGIONAL TRANSPORTATION MANAGER Gender Identity Not on file Sexual Orientation [...] Recently Relevant to Health Maintenance Care Teams Competitive Intelligence Analyst Relationship Specialty Start Date End Date Kristian Hill MD PCP - General 03/04/09
--- OUTSIDE RECORDS SUMMARY | 2025-10-14 17:20 | XMS_ITS | Patient Health Record ---
Author Organization [facility] Address [address] [place] [address] Care Team Providers Care Feeder Driver Name Role Phone Zion Prasad Unavailable [phone] Reason For Referral No Information Medications Medication SIG (Take, Route, Frequency, Duration) Notes Start Date End Date Status Bisoprolol-hydroCHLOR Othiazide 5-6.25 MG Tablet Oral 01/06/2022 Active Escitalopram Oxalate 20 MG Tablet Oral 01/06/2022 Active Diclofenac Sodium 1% Gel Transdermal 01/06/2022 Active Alendronate Sodium 70 MG Tablet Oral 01/06/2022 Active Vitamin B Complex *Pick strength-form from [employer] miniDaT for eRX* 01/06/2022 Active Escitalopram Oxalate 5 MG Tablet Oral 01/06/2022 Active Xanax 0.5 MG Tablet Oral 01/06/2022 Active ALPRAZolam 0.5 MG Tablet Oral 01/06/2022 Active Immunizations Vaccine Route Administration Date Status Comme nts Influenza, high dose seasonal Unknown 11/05/2018 Admini stered Influenza, high dose seasonal Unknown 09/06/2019 Admini stered Influenza, high dose seasonal Unknown 09/07/2020 Admini stered Influenza, seasonal, injecta ble, preservative free, 3 yrs and above Unknown 09/15/2013 Administered Moderna Covid-19 Vaccine 1st dose Unknown 01/07/2021 Ad ministered Moderna Covid-19 Vaccine 1st dose Unknown 02/05/2021 Ad ministered Pneumococcal conjugate PCV 13 Unknown 11/05/2018 Admini stered Pneumococcal polysaccharide PPV23 Unknown 01/08/2020 Ad ministered Social History Social History Additional Details Category Social Info Options Details Migrated Social History Migrated Social History Alcohol Intake: Occasional 11/29/2018,Tobacco Years: Never smoker 11/29/2018 Plan Of Treatment No Information Insurance Providers Payer Name Payer Address Payer Phone Subscriber Number Group Number Insured Name Patient Relationship to Insured Coverage Start Date Coverage End Date [employer] Medicare Replacement/ [employer]vant[employer] - [employer] [address] [place] [phone] [id number] MARÍA DE LOS SANTOS Self - patient is the insured Medical (General) History Surgical History Surgery Date(Month/Year) Hemorrhoidectomy ([id number]) 01/25/2019
== END 2025-10-14 09:47 | disposition home or self-care (01) ==
LOC: ANHSURGERY 09:46
PROVIDERS: Anesthesiology; PCP Family Medicine; Visit Provider Orthopaedic Surgery
DX: M16.0 Bilateral primary osteoarthritis of hip (principal); Z01.818 Encounter for other preprocedural examination
CPT/HCPCS: 36415; 80048; 80307; 82040; 83036; 85025; 86850; 86900; 86901; 87641; 93005

== ENCOUNTER 2025-10-30 08:16 | Outpatient (CLI) | payer OTHER, SELFPAY ==
--- NOTE | ~2025-10-30 | NM_ITS ---
EXAMINATION: NM joanna stress w perfusion DATE: 10/30/2025 11:20 AUTHORIZATION REPRESENTATIVE INDICATION: Abnormal EKG TECHNIQUE: Rest images were obtained following intravenous administration of 11.2 mCi Tc99m tetrofosmin (Myoview). The patient was infused intravenously with Lexiscan (regadenoson). Then, 32 mCi Tc99m tetrofosmin (Myoview) was administered intravenously, and stress images were obtained. Data was recons tructed into short axis and horizontal and vertical long axis SPECT images. Gated SPECT images were also obtained. COMPARISON: None. FINDINGS: There is no definite reversible or fixed perfusion abnormality to suggest ischemia or infarction. There is no segmental wall motion abnormality. Left ventricular ejection fraction measures 68%. IMPRESSION: 1. No definite ischemia or infarct. 2. Normal left ventricular ejection fraction measuring 68%. Reviewed, dictated and finalized at location I. ORIZATION REPRESENTATIVE
--- OUTSIDE RECORDS SUMMARY | 2025-10-30 08:30 | XMS_ITS | Clinical Summary ---
Author Organization [facility] Address [address] 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
--- OUTSIDE RECORDS SUMMARY | 2025-10-30 08:30 | XMS_ITS | Patient Health Record ---
Author Organization [facility] [employer] Address [address] [place] [address] Care Team Providers Care Clin Tech Name Role Phone Zion Prasad Unavailable [phone] Reason For Referral No Information Medications Medication SIG (Take, Route, Frequency, Duration) Notes Start Date End Date Status Bisoprolol-hydroCHLOR Othiazide 5-6.25 MG Tablet Oral 01/06/2022 Active Escitalopram Oxalate 20 MG Tablet Oral 01/06/2022 Active Diclofenac Sodium 1% Gel Transdermal 01/06/2022 Active Alendronate Sodium 70 MG Tablet Oral 01/06/2022 Active Vitamin B Complex *Pick strength-form from Car reviews for eRX* 01/06/2022 Active Escitalopram Oxalate 5 [...] - Hmo [address] [place] [address] [id number] 1 MARÍA DE LOS SANTOS Self - patient is the insured Medical (General) History Surgical History Surgery Date(Month/Year) Hemorrhoidectomy ([id number]) 01/25/2019
--- OUTSIDE RECORDS SUMMARY | 2025-10-30 08:30 | XMS_ITS | Encounter Summary ---
Author Organization [employer] [facility] Address [address] [place] [address] Care Team Providers Care System Sales Consultant Name Role Phone Diann Hill MD Primary [...] on file Legal Sex Female 5:36 AM FREIGHT UNLOADER Gender Identity Not on file Sexual Orientation Not on file documented as of this encounter Plan of Treatment Not on file documented as of this encounter Procedures Procedure Name Priority Date/Time Associated Diagnosis Comments US ABDOMEN LIMITED Timed Study 11/19/2008 8: 45 AM FREIGHT UNLOADER documented in this encounter Results * US ABDOMEN LIMITED (11/19/2008 8:45 AM FREIGHT UNLOADER) Anatomical Region Laterality Modality Abdomen Other 11/19/2008 8:45 AM FREIGHT UNLOADER Narrative 11/19/2008 10:13 AM FREIGHT UNLOADER [facility] [address], [place] [address] Admit Date: 11/19/2008 NIKIA CAROLINA Sex: F Admit Prov: ELZBIETADIANN Date: 1950 Primary Care Prov: ELZBIETA DIANN Rivers CMRN: [id number] Room: [facility] SSN: [id number] IMAGING SERVICES Ordering Prov: N/A Accession Number: [id number] Interpretation ULTRASOUND ABDOMEN LIMITED 11/19/2008 History: Right [...] Procedure Note Usha Canela MD - 11/19/2008 [facility] [address], [place] [address] Admit Date: 11/19/2008 NIKIA CAROLINA Sex: F Admit Prov: DIANN HILL Date: 1950 Primary Care Prov: DIANN HILL CMRN: [id number] Room: [facility] SSN: [id number] IMAGING SERVICES Ordering Prov: N/A Interpretation ULTRASOUND [...] quadrant documented in this encounter Care Teams System Sales Consultant Relationship Specialty Start Date End Date Diann Hill MD PCP - General 03/04/09 documented as of this encounter
--- OUTSIDE RECORDS SUMMARY | 2025-10-30 08:30 | XMS_ITS | Encounter Summary ---
Author Organization [employer] Address [address] [place] [address] Care Team Providers Care Healthcare Administrator Name Role Phone Diann Hill MD Primary [...] on file Legal Sex Female 5:36 AM BIOINFORMATICS COMPUTER SCIENTIST Gender Identity Not on file Sexual Orientation [...] PHARM INTERV Timed Study 11/25/2008 1:00 PM BIOINFORMATICS COMPUTER SCIENTIST documented in this encounter Results * NM HEPATOBIL W EJECT FRACTION (11/25/2008 1:00 PM BIOINFORMATICS COMPUTER SCIENTIST) Anatomical Region Laterality Modality Abdomen Other 11/25/2008 1:00 PM BIOINFORMATICS COMPUTER SCIENTIST Narrative 11/25/2008 2:55 PM BIOINFORMATICS COMPUTER SCIENTIST [facility] [address], [place] [address] Admit Date: 11/25/2008 NIKIA CAROLINA Sex: F Admit Prov: ELZBIETA DIANN Rivers Date: 1950 Primary Care Prov: DIANN HILL CMRN: [id number] Room: [facility]: [id number] IMAGING SERVICES Ordering Prov: N/A Accession Number: [id number] Interpretation HEPATOBILIARY STUDY WITH CCK CHALLENGE HISTORY: 58-year-old female with abdominal pain. PROCEDURE: After injection with 5.3 mCi of [id number]-[id number], the patient's abdomen was imaged dynamically in [...] 14:54 Procedure Note Dennis Amado - 11/25/2008 [address] [place], [place] [address] Admit Date: 11/25/2008 NIKIA CAROLINA Sex: F Admit Prov: DIANN HILL Date: 1950 Primary Care Prov: DIANN HILL CMRN: [id number] Room: [facility]: [id number] IMAGING SERVICES Ordering Prov: N/A Interpretation HEPATOBILIARY STUDY WITH CCK CHALLENGE HISTORY: 58-year-old female with abdominal pain. PROCEDURE: After injection with 5.3 mCi of [id number], the patient's abdomenwas imaged dynamically in the [...] on filedocumented in this encounter Care Teams Healthcare Administrator Relationship Specialty Start Date End Date Diann Hill MD PCP - General 03/04/09 documented as of this encounter
--- NOTE | 2025-10-30 08:37 | EST_ITS ---
Patient Info Name: Nikia Carolina Age: 75 years : 1950 Gender: Female Ht: 64 in Wt: 134 lbs BSA: 1.66 m2 HR: 59 bpm BP: 159 / 85 mmHg Exam Date: 10/30/2025 8:37 AM Patient Status: O Admit Date: 10/30/2025 Exam Type: CA stress joanna w NM A regadenoson stress test was performed. Staff Referring Physician: Ollie Good Attending Provider: Ollie Good Exercise Technologist: Natalie Aldridge Exercise Physician: Rock Orozco DO Summary 1. 1. Negative lexiscan stress test for ischemic ST changes by ECG criteria. 2. 2. Baseline hypertension. 3. 3. Nuclear scan to follow and will be reported separately. Please correlate with it. 4. 4. Patient informed of the above results. Protocol: Lexiscan Stress ECG Details Stage: REST Duration (min): 2 min : 11 sec HR (bpm): 58 SBP (mmHg): 159 DBP (mmHg): 85 Stage: REST Duration (min): 3 min : 44 sec HR (bpm): 76 SBP (mmHg): 159 DBP (mmHg): 85 Stage: STAGE 1 Duration (min): 0 min : 59 sec HR (bpm): 87 SBP (mmHg): 171 DBP (mmHg): 80 Stage: RECOVERY Duration (min): 1 min : 0 sec HR (bpm): 89 SBP (mmHg): 171 DBP (mmHg): 80 Stage: RECOVERY Duration (min): 2 min : 0 sec HR (bpm): 85 SBP (mmHg): 171 DBP (mmHg): 80 Stage: RECOVERY Duration (min): 3 min : 0 sec HR (bpm): 88 SBP (mmHg): 164 DBP (mmHg): 77 Stage: RECOVERY Duration (min): 4 min : 0 sec HR (bpm): 87 SBP (mmHg): 164 DBP (mmHg): 77 Stage: RECOVERY Duration (min): 5 min : 0 sec HR (bpm): 85 SBP (mmHg): 154 DBP (mmHg): 74 Stage: RECOVERY Duration (min): 5 min : 3 sec HR (bpm): 85 SBP (mmHg): 154 DBP (mmHg): 74 Rest HR: 76 bpm Peak HR: 89 bpm Rest Sys BP: 159 mmHg Peak Sys BP: 171 mmHg Max Pred HR: 147 bpm % Max Pred HR: 61 % Target HR: 125 bpm Max RPP: 15,219 bpm*mmHg Termination Reason: Completed protocol Cardiac Symptoms: None Total Time: 1 min : 0 sec Rest Corral BP: 85 mmHg Peak Corral BP: 80 mmHg Total Dose: 0.4 mg Resting ECG Sinus rhythm. Stress ECG No ST changes. Arrhythmias None. Report Signatures
== END 2025-10-30 08:17 | disposition home or self-care (01) ==
PROVIDERS: PCP Family Medicine
DX: R94.31 Abnormal electrocardiogram [ECG] [EKG] (principal)
CPT/HCPCS: 78452; 93017; A9502; J2785

== ENCOUNTER 2025-11-19 00:03 | Day surgery (SDC) | payer OTHER, SELFPAY ==
[2025-10-14 10:05] VITALS: BP 132/66; PULSE 98; RESP 16; TEMP 36.8; O2SAT 98; BMI 24.3
--- NOTE | 2025-10-14 10:22 | PC.NURSE ---
Addendum entered by Lissy Tim RN 11/10/25 10:30: Pt called, stress test ok, proceed with new date and time of surgery as below, meds reconciled too HEATHER Report to the Outpatient Waiting Room, entrance under the green pavilion located off [facility], at time _06:00am on date __11/19/25 . Planned Procedure Time: 07:30am .? Time changes happen often and if your time is changed the preop area will call you the afternoon before. - You and your visitor will be asked to self-screen and do not enter if you have any COVID symptoms. Please call surgeon if you need to reschedule. - A mask is optional within the hospital at this time. Patients may have clear liquids (water, carbonated beverages, clear teas, apple juice) until 3 hours prior to surgery with a maximum of 20 ounces. - No food from midnight until time of surgery and no smoking, or chewing tobacco (or any form of nicotine). No chewing gum, candy or mints. (0430am) Take only the following medications with a SIP of water on the morning of surgery: ____ Xanax as needed DO NOT STOP ANY OF YOUR OTHER PRESCRIPTION MEDICATIONS PRIOR TO SURGERY EXCEPT THE FOLLOWING Hold all vitamins and supplements for 3 days per anesthesiologist. Date of last 11/15/25. Medications to discontinue per physician Hold Meloxicam/NSAIDS/ASPIRIN for [address] Gibbs Date to take last dose 10/16/25 pt been off since then Original Note: [facility] has started construction of its new state of the art ER which will open Spring 2026. With this, we anticipate parking may be a challenge for some our surgical patients and families. Parking spaces are limited but are available for all Surgical, obstetrics, and ER patients sharing this lot. If you arrive and find you are having a hard time finding a parking space, please note that we understand the challenges, please drive around the hospital and park near Hospital Entrance 1. When you enter this entrance, you can ask a volunteer to direct or take you back to the surgical waiting area to check in. We appreciate everyone?s understanding of these expected challenges while we build for your future. Report to the Outpatient Waiting Room, entrance under the green pavilion located off [facility], at time _06:00am on date __10/22/25 . Planned Procedure Time: 07:30am .? Time changes happen often and if your time is changed the preop area will call you the afternoon before. - You and your visitor will be asked to self-screen and do not enter if you have any COVID symptoms. Please call surgeon if you need to reschedule. - A mask is optional within the hospital at this time. Patients may have clear liquids (water, carbonated beverages, clear teas, apple juice) until 3 hours prior to surgery with a maximum of 20 ounces. - No food from midnight until time of surgery and no smoking, or chewing tobacco (or any form of nicotine). No chewing gum, candy or mints. (0430am) Take only the following medications with a SIP of water on the morning of surgery: ____Lexapro and Xanax as needed DO NOT STOP ANY OF YOUR OTHER PRESCRIPTION MEDICATIONS PRIOR TO SURGERY EXCEPT THE FOLLOWING Hold all vitamins and supplements for 3 days per anesthesiologist. Date of last 10/18/25. Medications to discontinue per physician Hold Meloxicam/NSAIDS/ASPIRIN for [address] Gibbs Date to take last dose 10/16/25 Please no make-up, nail citizen of [place], hairspray, perfume, deodorant, or body powder the day of surgery.? No jewelry (including any body piercings) or valuables the day of surgery, leave them at home.? Please take a shower or bath the night before & the morning of, surgery with an antibacterial soap GOLD DIAL. Wear comfortable, loose fitting clothing.? Bring overnight bag, good shoes, walker, phone - Jewelry must be removed prior to entering the operating room.? Rings and piercings that are not removed may be cut off. - The hospital will not accept responsibility for valuables.? - Please leave all valuables, including medications, at home the day of surgery. If you are going home after surgery, a licensed auto haulaway driver must drive you home.? - NO public transportation without another adult if you receive anesthesia. - We recommend that an adult stay with you for 24 hours following discharge. - We also recommend that you do not drive, make important decision, drink alcoholic beverages, or take any drugs that were not prescribed by your health care provider for at least 24 hours after your discharge time. Follow any additional instructions given to you from your surgeon. Telephone instructions given to _Patient and asked if any additional questions and then verbalized understanding. Patient advised to call surgeon office or pre surgery nurse liaison [phone] if any additional questions.
--- NOTE | 2025-10-16 07:06 | PM.IMHP ---
H&P: HPI History of Present Illness Date/Time: 10/16/25 07:06 Chief Complaint: Patient has catching locking and pain of her right hip. She has failed conservative treatment like to consider hip replacement surgery. She has iwzd-zg-meul change. She has arthritis of her right hip his left hip as well. However the right 1 is the 1 with the most symptoms. She has a hard time ambulating has failed conservative treatment. Review of Systems Musculoskeletal: Musculoskeletal: Reports arthralgias, Reports joint swelling and Reports stiffness Neurologic: Reports abnormal gait [facility] Past Medical History Medical History Screening for breast cancer Lumbar back pain HTN (hypertension) Chronic GERD Arthritis Anxiety Surgical History Surgical History History of back surgery Vertebral fractures H/O: hysterectomy Family History Family History Father Cerebrovascular accident Mother Breast cancer Hypertension Depression Daughter Thyroid condition Lupus Social History Social History (Updated 08/12/25 @ 08:13 by Jackelyn Freeman CMA) Smoking status: Never smoker Second hand tobacco smoke exposure: No Alcohol intake: current Alcohol use details: few per months Substance use: never Substance use type: does not use Lack of Transportation: No Lack of Food: Never True Current Housing: I Have Housing Concerned About Future Housing: No Difficulty Paying Gas/Electric Bills: No Difficulty Paying for Meds: No Currently Unemployed: No Education: High School Diploma/GED Difficulty w/ Childcare or Family Care: No Living arrangements: with family Additional living arrangements comments: Occupation/Education: retired Gender identity (if verbalized by the patient): Female Spiritual care concerns: No Meds Home Medications and Allergies Home Medications ?Medication ?Instructions ?Recorded ?Confirmed ?Type pantoprazole 40 mg tablet,delayed 40 mg PO DAILY 12/21/23 10/14/25 History release bisoprolol 5 1 tablet PO DAILY #90 tabs 03/05/25 10/14/25 Rx mg-hydrochlorothiazide 6.25 mg tablet alprazolam 0.5 mg tablet 0.5 mg PO DAILY PRN anxiety #30 06/23/25 10/14/25 Rx tabs meloxicam 15 mg tablet 15 mg PO DAILY #90 tabs 08/25/25 10/14/25 Rx Held on 10/14/25. Instructions: .Provider Order escitalopram oxalate 20 mg tablet 20 mg PO DAILY #90 tabs 09/16/25 10/14/25 Rx (Lexapro) calcium 600 mg capsule 600 mg PO DAILY 10/14/25 10/14/25 History multivitamin with minerals-folic 1 tablet PO DAILY 10/14/25 10/14/25 History acid 12 mcg chewable tablet (Centrum Adults) Allergies Allergy/AdvReac Type Severity Reaction Status Date / Time sertraline (From Zoloft) AdvReac Mild Headache Verified 10/14/25 10:00 Sulfa (Sulfonamide AdvReac Mild Headache Verified 10/14/25 10:00 Antibiotics) Exam Narrative: On exam patient is internal rotation 0 external rotation of 30 on the right. She has a positive Stinchfield test and pain with any manipulation. Neurologically she is grossly intact. She walks with a limp. She has pain with any motion of her hip. Neck: Neck: supple Resp: Effort & Inspection: normal respiratory effort Cardio: Rate: regular rate Rhythm: regular rhythm Radiology Reports: Comments: XRay Report Signed Patient: Nikia Carolina XR hip RT 2V w AP pelvis 06/23/2025 12:44 Indication: Pelvic and hip pain Procedure: AP pelvis and 2 views right hip Comparison: 09/10/2013 Findings: There is moderate-severe bilateral osteoarthritis of the hips which has progressed since prior study. No acute fracture or traumatic malalignment. Sacral foramen are symmetric. Impression: 1: Mild-moderate bilateral osteoarthritis of the hips. Reviewed, dictated and finalized at location A. Hip/Pelvis X-Ray 06/30/25 Knee X-Ray 06/25/25 Lumbar Spine X-Ray 06/30/25 Assessment and Plan Assessment and plan (1) Osteoarthritis, hip, bilateral: Code(s): M16.0 - Bilateral primary osteoarthritis of hip Status: Acute Assessment and Plan: Patient has pxuk-da-efxf arthritis of both hips. The bones are touching. She has failed conservative treatment like to consider hip replacement surgery. The right hip is most symptomatic will proceed with that. I have discussed risks, benefits, limitations, and alternatives with the patient in detail. She understands and agrees would like to proceed.
--- NOTE | 2025-11-13 07:08 | PM.IMHP2 ---
H&P: HPI History of Present Illness Date/Time: 11/13/25 07:08 Chief Complaint: Patient has hip pain right. She has eily-pr-pzcl arthritis of her right hip. She has failed conservative treatment like to consider surgical intervention at this time. Review of Systems Musculoskeletal: Musculoskeletal: Reports myalgias, Reports arthralgias, Reports joint swelling and Reports stiffness Neurologic: Reports abnormal gait [facility] Past Medical History Medical History Screening for breast cancer Lumbar back pain HTN (hypertension) Chronic GERD Arthritis Anxiety Surgical History Surgical History History of back surgery Vertebral fractures H/O: hysterectomy Family History Family History Father Cerebrovascular accident Mother Breast cancer Hypertension Depression Daughter Thyroid condition Lupus Social History Social History (Updated 08/12/25 @ 08:13 by Jackelyn Freeman [facility]) Smoking status: Never smoker Second hand tobacco smoke exposure: No Alcohol intake: current Alcohol use details: few per months Substance use: never Substance use type: does not use Lack of Transportation: No Lack of Food: Never True Current Housing: I Have Housing Concerned About Future Housing: No Difficulty Paying Gas/Electric Bills: No Difficulty Paying for Meds: No Currently Unemployed: No Education: High School Diploma/GED Difficulty w/ Childcare or Family Care: No Living arrangements: with family Additional living arrangements comments: Occupation/Education: retired Gender identity (if verbalized by the patient): Female Spiritual care concerns: No Meds Home Medications and Allergies Home Medications ?Medication ?Instructions ?Recorded ?Confirmed ?Type pantoprazole 40 mg tablet,delayed 40 mg PO DAILY 12/21/23 10/14/25 History release bisoprolol 5 1 tablet PO DAILY #90 tabs 03/05/25 10/14/25 Rx mg-hydrochlorothiazide 6.25 mg tablet alprazolam 0.5 mg tablet 0.5 mg PO DAILY PRN anxiety #30 06/23/25 10/14/25 Rx tabs meloxicam 15 mg tablet 15 mg PO DAILY #90 tabs 08/25/25 10/14/25 Rx Held on 10/14/25. Instructions: .Provider Order escitalopram oxalate 20 mg tablet 20 mg PO DAILY #90 tabs 09/16/25 11/10/25 Rx (Lexapro) calcium 600 mg capsule 600 mg PO DAILY 10/14/25 10/14/25 History multivitamin with minerals-folic 1 tablet PO DAILY 10/14/25 10/14/25 History acid 12 mcg chewable tablet (Centrum Adults) hydrocodone 7.5 mg-acetaminophen 1 tablet PO Q6H PRN pain #40 tabs 10/16/25 11/10/25 Rx 325 mg tablet Allergies Allergy/AdvReac Type Severity Reaction Status Date / Time sertraline (From Zoloft) AdvReac Mild Headache Verified 11/10/25 10:26 Sulfa (Sulfonamide AdvReac Mild Headache Verified 11/10/25 10:26 Antibiotics) Exam Narrative: On exam she has internal rotation 0 external rotation is 20 her right hip. She has a positive Stinchfield test and grinding crepitus and pain with manipulation. She walks with an antalgic gait. Neurologically she is intact. She has pain with any activity and motion. Radiology Reports: Comments: XRay Report Signed Patient: Nikia Carolina : 1950 MR#: [id number] Age: 75 Acct:[id number] Loc: [facility] ADM Date: 06/23/[address]: Ollie Good POLE INSPECTOR Ordering Physician: Ollie Good APN Date of Service: 06/23/25 Procedure(s): XR hip RT 2V w AP pelvis Accession Number(s): [id number] cc: Ollie Good APN; Anders Hanks MD~ XR hip RT 2V w AP pelvis 06/23/2025 12:44 Indication: Pelvic and hip pain Procedure: AP pelvis and 2 views right hip Comparison: 09/10/2013 Findings: There is moderate-severe bilateral osteoarthritis of the hips which has progressed since prior study. No acute fracture or traumatic malalignment. Sacral foramen are symmetric. Impression: 1: Mild-moderate bilateral osteoarthritis of the hips. Reviewed, dictated and finalized at location A. Hip/Pelvis X-Ray 06/30/25 Knee X-Ray 06/25/25 Lumbar Spine X-Ray 06/30/25 Assessment and Plan Assessment and plan (1) Osteoarthritis of right hip: Code(s): M16.11 - Unilateral primary osteoarthritis, right hip Status: Acute Assessment and Plan: Patient has arthritis right hip. He has yldh-qu-koyw changes of the hip. She has failed conservative treatment like to consider surgical intervention. I have discussed the risks, benefits, limitations, and alternatives with her in detail. She understands and agrees like to proceed. Will proceed per her request thank you.
[2025-11-19] VITALS (18 sets, daily range): BP systolic 91–138; BP diastolic 46–89; PULSE 57–88; RESP 10–18; TEMP 36.1–36.7; O2SAT 83–100; BMI 23.3; BMI 10.0
--- NOTE | ~2025-11-19 | XR_ITS ---
EXAMINATION: XR surgery orthopedic DATE: 11/19/2025 09:28 INDICATION: Intraoperative evaluation during right total hip arthroplasty TECHNIQUE: 2 frontal views of the right hip were obtained. COMPARISON: None. FINDINGS: Intraoperative image during a right total hip arthroplasty demonstrate placement of an acetabular component affixed with at least a single screw which appears in near anatomic alignment on the single image provided. A femoral broach is in place with the proximal tip centered over the acetabular component. There is replaced on the subsequent image with placement of a noncemented femoral component with the head in expected position projecting concentrically over the acetabular component. Portions of the pelvis are obscured by a bolster. No fractures in the visualized bones. There is expected lucent soft tissue gas at the operative bed. IMPRESSION: 1. Expected appearance during right total hip arthroplasty. Reviewed, dictated and finalized at location A. ICE ASSOCIATE
--- OUTSIDE RECORDS SUMMARY | 2025-11-19 00:06 | XMS_ITS | Encounter Summary ---
Author Organization [employer] [facility] Address [address] [place] [address] Care Team Providers Care Pharmacy Services Representative Name Role Phone Diann Hill MD Primary [...] on file Legal Sex Female 5:36 AM COMMERCIAL LOAN REVIEWER Gender Identity Not on file Sexual Orientation Not on file documented as of this encounter Plan of Treatment Not on file documented as of this encounter Procedures Procedure Name Priority Date/Time Associated Diagnosis Comments US ABDOMEN LIMITED Timed Study 11/19/2008 8: 45 AM COMMERCIAL LOAN REVIEWER documented in this encounter Results * US ABDOMEN LIMITED (11/19/2008 8:45 AM COMMERCIAL LOAN REVIEWER) Anatomical Region Laterality Modality Abdomen Other 11/19/2008 8:45 AM COMMERCIAL LOAN REVIEWER Narrative 11/19/2008 10:13 AM COMMERCIAL LOAN REVIEWER [facility] [address] [place], [place] [address] Admit Date: 11/19/2008 NIKIA CAROLINA Sex: F Admit Prov: ELZBIETADIANN Date: 1950 Primary Care Prov: ELZBIETA DIANN Rivers CMRN: [id number] [facility] SSN: [id number] IMAGING SERVICES Ordering Prov: N/A Accession Number: [id number] Interpretation ULTRASOUND ABDOMEN LIMITED 11/19/2008 History: Right [...] Procedure Note Usha Canela MD - 11/19/2008 [facility] [address] [place], [place] [address] Admit Date: 11/19/2008 NIKIA CAROLINA Sex: F Admit Prov: DIANN HILL Date: 1950 Primary Care Prov: DIANN HILL CMRN: [id number] [facility] SSN: [id number] IMAGING SERVICES Ordering Prov: N/A Interpretation ULTRASOUND [...] quadrant documented in this encounter Care Teams Pharmacy Services Representative Relationship Specialty Start Date End Date Diann Hill MD PCP - General 03/04/09 documented as of this encounter
--- OUTSIDE RECORDS SUMMARY | 2025-11-19 00:06 | XMS_ITS | Clinical Summary ---
Author Organization [facility] Medicine Address [address] [place] [address] Care Team Providers Care Steam Tender Name Role Phone Kristian Hill MD Primary [...] on file Legal Sex Female 5:36 AM PRODUCT SALES REPRESENTATIVE Gender Identity Not on file Sexual Orientation [...] Recently Relevant to Health Maintenance Care Teams Steam Tender Relationship Specialty Start Date End Date Kristian Hill MD PCP - General 03/04/09
--- OUTSIDE RECORDS SUMMARY | 2025-11-19 00:06 | XMS_ITS | Encounter Summary ---
Author Organization [facility] Address [facility] [place] [address] Care Team Providers Care Construction Skills Teacher Name Role Phone PrasadZion PARADI TENDER Unavailable [phone] Lance Dial MD Primary Care Provider [phone] Anders Hanks MD Primary Care Provider [phone] Encounter Details Date Type Department Care Team (Late st Contact Info) Description 02/14/2023 Therapy Plan [facility] One Day Services [address] [place], [place] [id number] [place] [address] [place], [place] [id number] Social History Tobacco Use Types Packs/Day Years [...] Coronavirus/COVID-19? No / Unsure 01/23/2023 7:49 AM POLICY CHECKER documented as of this encounter Plan of Treatment Not on file documented as of this encounter Visit Diagnoses Diagnosis Age-related osteoporosis without current pathological fracture- Primary Senile osteoporosis documented in this encounter Additional Health Concerns Assessment Noted Time PHQ-9 Depression Total Score: 0 01/11/20 22 8:21 AM POLICY CHECKER documented as of this encounter Care Teams Construction Skills Teacher Relationship Specialty [place] [address] [place] [address] PCP - General FAMILY PRACTICE 12/31/21 01/07/24 Anders Hanks MD [address] [place] [address] PCP - General FAMILY PRACTICE 01/08/24 Zion Prasad NP [address] [place] [address] [address] Advanced Practice Provider Psychiatry 05/26/21 documented as of this encounter
--- OUTSIDE RECORDS SUMMARY | 2025-11-19 00:06 | XMS_ITS | Encounter Summary ---
Author Organization [facility] Address [address] [place] [address] Care Team Providers Care Senior Living Advisor Name Role Phone Bacilio Garrison MD Primary Care Provider [phone] Zion Prasad CIA AGENT Unavailable [phone] Lance Dial MD Primary Care Provider [phone] Anders Hanks MD Primary Care Provider [phone] Encounter Details Date Type Department Care Team (Late st Contact Info) Description 02/18/2019 CASE REVIEWER ONLY [facility] Medical [facility] - [address] [place] [address] Scanned, Documents Social History Tobacco [...] 12:00 AM CDT NIKIA CAROLINA MD: ACCT: [id number] ADMIT/SERVICE DATE: 02/18/19 DISCHARGE DATE: 02/18/19 : 1950 PT TYPE: DEP SDC SEX: F ORD SITE: [facility] REPORT OF PATHOLOGICAL EXAMINATION DATE OF SURGERY: 02/18/2019 SURGICAL PATH NO: [id number] DATE OBTAINED: 02/18/2019 DATE RETURNED: 02/19/2019 CHART DOCUMENT I. HEMORRHOIDS: - EXTERNAL HEMORRHOIDS. SPECIMEN: HEMORRHOIDS. GROSS EXAMINATION: THE SPECIMEN IS RECEIVED IN FORMALIN LABELED WITH THE PATIENT'S NAME AND HEMORRHOIDS. THE SPECIMEN CONSISTS OF FIVE FRAGMENTS OF RED/ORANTES SOFT TISSUE RANGING IN SIZE FROM 1 CM UP TO 2.5. ONE ASSURANCE AUDITOR SECTION IS BISECTED AND SUBMITTED ENTIRELY IN SINGLE CASSETTE. TD/MKP 02/18/2019 02/18/2019 02:39 P MICROSCOPIC EXAMINATION: SECTIONS REVEAL EXTERNAL HEMORRHOIDS. THE TISSUE IS LINED BY BENIGN SQUAMOUS EPITHELIUM. THE UNDERLYING TISSUE SHOWS MARKEDLY DISTENDED BLOOD VESSELS WITH SLIGHT CHRONIC INFLAMMATION. ELECTRONICALLY SIGNED BY DARLING ENRIQUEZ MD 02/19/2019 02:35 P DT: SALONI/RC:02/19/2019 DOC NO: [id number] documented in this encounter Plan of Treatment Not on file documented as of this encounter Visit Diagnoses Not on filedocumented in this encounter Care Teams Senior Living Advisor Relationship Specialty Start Date End Date Bacilio Garrison MD PCP - General INTERNAL MEDICINE 11/01/18 12/30/21 [place] [address] [place] [address] PCP - General FAMILY PRACTICE 12/31/21 01/07/24 Anders Hanks MD [address] [place], [place] [id number] PCP - General FAMILY PRACTICE 01/08/24 Zion Prasad NP [address] [place] [place] [address] Advanced Practice Provider Psychiatry 05/26/21 documented as of this encounter
--- OUTSIDE RECORDS SUMMARY | 2025-11-19 00:06 | XMS_ITS | Encounter Summary ---
Author Organization [facility] [employer] Address [address] [place] [address] Care Team Providers Care Shipyard Painter Helper Name Role Phone Diann Hill MD Primary [...] on file Legal Sex Female 5:36 AM SPOOL HAULER Gender Identity Not on file Sexual Orientation [...] PHARM INTERV Timed Study 11/25/2008 1:00 PM SPOOL HAULER documented in this encounter Results * NM HEPATOBIL W EJECT FRACTION (11/25/2008 1:00 PM SPOOL HAULER) Anatomical Region Laterality Modality Abdomen Other 11/25/2008 1:00 PM SPOOL HAULER Narrative 11/25/2008 2:55 PM SPOOL HAULER [facility] [address] [place] [place], [place] [address] Admit Date: 11/25/2008 NIKIA CAROLINA Sex: F Admit Prov: ELZBIETA DIANN Rivers Date: 1950 Primary Care Prov: DIANN HILL CMRN: [id number] Room: [facility] CAREN: [id number] IMAGING SERVICES Ordering Prov: N/A Accession Number: [id number] Interpretation HEPATOBILIARY STUDY WITH CCK CHALLENGE HISTORY: 58-year-old female with abdominal pain. PROCEDURE: After injection with 5.3 mCi of [id number], the patient's abdomen was imaged dynamically in [...] 14:54 Procedure Note Dennis Amado - 11/25/2008 [id number] [place], [place] [address] Admit Date: 11/25/2008 NIKIA CAROLINA Sex: F Admit Prov: DIANN HILL Date: 1950 Primary Care Prov: DIANN HILL CMRN: [id number] Room: [facility] CAREN: [id number] IMAGING SERVICES Ordering Prov: N/A Interpretation HEPATOBILIARY STUDY WITH CCK CHALLENGE HISTORY: 58-year-old female with abdominal pain. PROCEDURE: After injection with 5.3 mCi of [id number], the patient's abdomenwas imaged dynamically in the [...] on filedocumented in this encounter Care Teams Shipyard Painter Helper Relationship Specialty Start Date End Date Diann Hill MD PCP - General 03/04/09 documented as of this encounter
--- OUTSIDE RECORDS SUMMARY | 2025-11-19 00:06 | XMS_ITS | Clinical Summary ---
Author Organization [facility] Address [address] [place] [address] Care Team Providers Care Can Filling Room Sweeper Name Role Phone Zion Prasad BODY AND FRAME MAN Unavailable [phone] Lena Hanks MD Primary Care Provider [phone] Allergies Active Allergy Reactions Criticality Noted Date [...] (03/22/2022): Added automatically from request for surgery [id number] Age-related osteoporosis wit hout current pathological fracture [...] colon polyp 12/02/2008 Overview (09/06/2019): Overview: 12/16/2004 Encounters Date Type Department Care Team Description 10/22/2025 Telephone [facility], [address] [address] Angie Sims, RMA Schedule Test (Stress test) 10/20/2025 Transcribe Orders [facility] Pre Access Team [address] [place] [address] Ollie Good, BODY AND FRAME MAN 10/20/2025 Transcribe Orders [facility] Pre Access Team [address] [place] [address] Ollie Good NP 10/20/2025 Transcribe Orders [facility] Pre Access Team [address] [place] [address] Ollie Good, BODY AND FRAME MAN from Last 3 Months Immunizations Immunization Administration Dates Next Due Fluzone [...] Annual Medicare Wellness Visit 2017 PHQ-2 (Physician [place]) 11/27/2024 01/26/2024 COVID-19 Vaccine ( season) 2025 [...] NIKKI NAKITA DIGI Routine 01/08/2024 8:20 AM OVERSIZE LOAD PILOT ESCORT Encounter for screening mammogram for breast cancer BONE DENSITY/DEXA Routine 01/12/2022 10: 05 AM OVERSIZE LOAD PILOT ESCORT Medication management Age-related osteoporosis without current pathological fracture COLONOSCOPY/EGD GENERIC (SCAN ORDER) Routine 09/21/2016 from Last 3 Months or Most Recently Relevant to Health Maintenance Results * MG SCREENING W NIKKI NAKITA DIGI (01/08/2024 8:20 AM OVERSIZE LOAD PILOT ESCORT) Anatomical Region Laterality Modality Breast Bilateral Mammography 01/08/2024 2:37 PM OVERSIZE LOAD PILOT ESCORT Narrative 01/08/2024 2:59 PM OVERSIZE LOAD PILOT ESCORT EXAMINATION: Digital bilateral screening mammogram with 3-D [...] By: Nito Byrne MD, 01/08/2024 2:37 PM us Lenakody Julien MD MAMMO Final Result * BONE DENSITY/DEXA (01/12/2022 10:05 AM OVERSIZE LOAD PILOT ESCORT) Anatomical Region Laterality Modality Bone Bone Density 01/12/2022 10:1 7 AM OVERSIZE LOAD PILOT ESCORT Impressions 01/12/2022 10:20 AM OVERSIZE LOAD PILOT ESCORT IMPRESSION: 1. Slight interval improvement in bone density since 11/23/2020, as detailed above. 2. Please above comments for detailed description. Ordered By: JUAN JOSE DIAL Interpreted By: Armida Tamayo, 01/12/2022 10:17 AM Narrative 01/12/2022 10:20 AM OVERSIZE LOAD PILOT ESCORT BONE DENSITY/DEXA EXAM DATE/TIME: 01/12/2022 9:54 AM [...] Most Recently Relevant to Health Maintenance Insurance [facility] Care Teams Can Filling Room Sweeper Relationship Specialty Start Date End Date Lena Hanks MD [address] [place] [address] PCP - General FAMILY PRACTICE 01/08/24 Zion Prasad NP [address] [facility] [address] [place] [address] Advanced Practice Provider Psychiatry 05/26/21
--- OUTSIDE RECORDS SUMMARY | 2025-11-19 00:07 | XMS_ITS | Patient Health Record ---
Author Organization [facility] Address [address] [place] [address] Care Team Providers Care Coiled Tubing Operator Name Role Phone Zion Prasad Unavailable [phone] Reason For Referral No Information Medications Medication SIG (Take, Route, Frequency, Duration) Notes Start Date End Date Status Bisoprolol-hydroCHLOR Othiazide 5-6.25 MG Tablet Oral 01/06/2022 Active Escitalopram Oxalate 20 MG Tablet Oral 01/06/2022 Active Diclofenac Sodium 1% Gel Transdermal 01/06/2022 Active Alendronate Sodium 70 MG Tablet Oral 01/06/2022 Active Vitamin B Complex *Pick strength-form from [facility] for eRX* 01/06/2022 Active Escitalopram Oxalate 5 MG Tablet Oral 01/06/2022 Active Xanax 0.5 MG Tablet Oral 01/06/2022 Active ALPRAZolam 0.5 MG Tablet Oral 01/06/2022 Active Immunizations Vaccine Route Administration Date Status Comme nts Pneumococcal polysaccharide PPV23 Unknown 01/08/2020 Ad ministered Pneumococcal conjugate PCV 13 Unknown 11/05/2018 Admini stered Moderna Covid-19 Vaccine 1st dose Unknown 01/07/2021 Ad ministered Moderna Covid-19 Vaccine 1st dose Unknown 02/05/2021 Ad ministered Influenza, seasonal, injecta ble, preservative free, 3 yrs and above Unknown 09/15/2013 Administered Influenza, high dose seasonal Unknown 11/05/2018 Admini stered Influenza, high dose seasonal Unknown 09/06/2019 Admini stered Influenza, high dose seasonal Unknown 09/07/2020 Admini stered Social History Social History Additional Details Category [...] - Hmo [address] [place] [phone] [id number] 1 MARÍA DE [place] Self - patient is the insured Medical (General) History Surgical History Surgery Date(Month/Year) Hemorrhoidectomy ([id number]) 01/25/2019
--- OUTSIDE RECORDS SUMMARY | 2025-11-19 00:07 | XMS_ITS | Encounter Summary ---
Author Organization [facility] Address [facility] [place] [address] Care Team Providers Care Client Account Manager Name Role Phone Zion Prasad INDUSTRIAL EDUCATION INSTRUCTOR Unavailable [phone] Anders Hanks MD Primary Care Provider [phone] Encounter Details Date Type Department Care Team (Late st Contact Info) Description 10/20/2025 Transcribe Orders [facility] Pre Access Team [address] [place] [address] Ollie Good, INDUSTRIAL EDUCATION INSTRUCTOR [address] [address] Social History Tobacco Use Types Packs/Day Years [...] Diagnoses Not on filedocumented in this encounter Additional Health Concerns Assessment Noted Time PHQ-9 Depression Total Score: 0 01/11/20 22 8:21 AM POWDER MIXER documented as of this encounter Care Teams Client Account Manager Relationship Specialty Start Date End Date Anders Hanks MD [address] [place] [address] PCP - General FAMILY PRACTICE 01/08/24 Zion Prasad NP [address] [place] [address] Advanced Practice Provider Psychiatry 05/26/21 documented as of this encounter
--- OUTSIDE RECORDS SUMMARY | 2025-11-19 00:07 | XMS_ITS | Encounter Summary ---
Author Organization [facility] Address [facility] [place] [address] Care Team Providers Care Track Vehicle Repairer Name Role Phone Zion Prasad SWITCHING OPERATOR Unavailable [phone] Anders Hanks MD Primary Care Provider [phone] Encounter Details Date Type Department Care Team (Late st Contact Info) Description 10/20/2025 Transcribe Orders [facility] Pre Access Team [address] [place] [address] Ollie Good, SWITCHING OPERATOR [address] [address] Social History Tobacco Use Types Packs/Day Years [...] Total Score: 0 01/11/20 22 8:21 AM RAILWAY TRACK PLANT OPERATOR documented as of this encounter Care Teams Track Vehicle Repairer Relationship Specialty Start Date End Date Anders Hanks MD [address] [place] [address] PCP - General FAMILY PRACTICE 01/08/24 Zion Prasad NP [address] [place] [address] Advanced Practice Provider Psychiatry 05/26/21 documented as of this encounter
--- NOTE | 2025-11-19 06:45 | WPDHPUPDATE1 ---
History and Physical Update Update Date/Time: 11/19/25 06:45 History and Physical has been reviewed, including an updated exam of the patient. There are NO changes in the patient's condition. Risks, benefits, and alternatives have been discussed and questions answered. Patient agrees to proceed with procedure.
[2025-11-19] MEDS: VANCOMYCIN HCL 1,000 MG in SODIUM CHLORIDE 0.9% IV 250 ML 250 MG IVPB (06:50)
[2025-11-19] MEDS: TRANEXAMIC ACID 1,000MG/ISO100 1,000 MG/100 ML BAG 200 MG IVPB (06:50)
[2025-11-19] MEDS: ACETAMINOPHEN 500 MG TABLET 1000 MG PO (06:50)
[2025-11-19] MEDS: LACTATED RINGERS 1,000 ML 30 ML IV CONT ×3 (06:50→11:15)
--- NOTE | 2025-11-19 07:09 | WPDANESEPPF ---
Anes - Initial Pre Proc Eval Procedure: Operation Date: 11/19/25 07:30 Proposed Procedures p Right Total Hip Arthroplasty - Dale Gibbs MD Date/Time: 11/19/25 07:09 Surgeon: Dale Gibbs MD Pre Op Diagnosis: OA Rt Hip Patient Data Age: 75 Gender: F Height: 1.63 m Weight: 64.2 kg Last Vital Signs Temp 98.2 F 10/14/25 10:05 Pulse 98 10/14/25 10:05 Resp 16 10/14/25 10:05 BP 132/66 10/14/25 10:05 Pulse Ox 98 10/14/25 10:05 O2 Del Method Room Air 10/14/25 10:05 Allergies Allergy/AdvReac Type Severity Reaction Status Date / Time sertraline (From Zoloft) AdvReac Mild Headache Verified 11/10/25 10:26 Sulfa (Sulfonamide AdvReac Mild Headache Verified 11/10/25 10:26 Antibiotics) Home Medications ?Medication ?Instructions ?Recorded ?Confirmed ?Type pantoprazole 40 mg tablet,delayed 40 mg PO DAILY 12/21/23 10/14/25 History release bisoprolol 5 1 tablet PO DAILY #90 tabs 03/05/25 10/14/25 Rx mg-hydrochlorothiazide 6.25 mg tablet alprazolam 0.5 mg tablet 0.5 mg PO DAILY PRN anxiety #30 06/23/25 10/14/25 Rx tabs meloxicam 15 mg tablet 15 mg PO DAILY #90 tabs 08/25/25 10/14/25 Rx Held on 10/14/25. Instructions: .Provider Order escitalopram oxalate 20 mg tablet 20 mg PO DAILY #90 tabs 09/16/25 11/10/25 Rx (Lexapro) calcium 600 mg capsule 600 mg PO DAILY 10/14/25 10/14/25 History multivitamin with minerals-folic 1 tablet PO DAILY 10/14/25 10/14/25 History acid 12 mcg chewable tablet (Centrum Adults) hydrocodone 7.5 mg-acetaminophen 1 tablet PO Q6H PRN pain #40 tabs 10/16/25 11/10/25 Rx 325 mg tablet Patient hx anesthesia problems: post op nausea/vomiting (Remote. ) and other (Diff w anesthesia for D and C many years ago. ) Family hx anesthesia problems: none Results Review: All pre-operative results and documents have been reviewed as part of the pre-operative evaluation. [facility] Past Medical History Medical History Screening for breast cancer Lumbar back pain HTN (hypertension) Chronic GERD Arthritis Anxiety Surgical History Surgical History History of back surgery Vertebral fractures H/O: hysterectomy Family History Family History Father Cerebrovascular accident Mother Breast cancer Hypertension Depression Daughter Thyroid condition Lupus Social History Social History Smoking status: Never smoker Second hand tobacco smoke exposure: No Alcohol intake: current Alcohol use details: few per months Substance use: never Substance use type: does not use Lack of Transportation: No Lack of Food: Never True Current Housing: I Have Housing Concerned About Future Housing: No Difficulty Paying Gas/Electric Bills: No Difficulty Paying for Meds: No Currently Unemployed: No Education: High School Diploma/GED Difficulty w/ Childcare or Family Care: No Living arrangements: with family Additional living arrangements comments: Occupation/Education: retired Gender identity (if verbalized by the patient): Female Spiritual care concerns: No Anes - Eval Final PreProcedure Day of Procedure 11/19/25 07:09 Patient weight: normal Lungs: normal air movement Airway: Mallampati scale class II Neurological: alert and oriented Last oral intake: >/= 8 hours ASA classification: II Emergent: no Anesthetic plan: proceed Anesthesia type and monitoring: general ETT and standard monitoring Results Review: All pre-operative results and documents have been reviewed as part of the pre-operative evaluation. HTN, borderline hyperlipidemia, OA and anxiety. Pt had sl abn EKG preop, stress test done 10/2025 w no ischemia, nml LVEF. Informed Consent: The patient's anesthetic plan and its attendant risks and benefits were discussed with the patient/family/POA. Questions were solicited and answers provided to the satisfaction of the patient/family/POA.
[2025-11-19] MEDS: ceFAZolin 2 GM in SODIUM CHLORIDE 0.9% IV 50 ML 100 ML IVPB ×2 (07:50→15:32)
[2025-11-19] MEDS: BUPIVACAINE/EPINEPHRINE 0.5% 50 ML VIAL 30 ML INFILTRATE (08:19)
[2025-11-19] MEDS: TRANEXAMIC ACID 1,000 MG/10 ML AMPUL 1000 MG IV PUSH (09:30)
--- NOTE | 2025-11-19 09:30 | W.PM.PROC2 ---
Procedure Note - Detailed Date of Procedure 11/19/25 Pre-op Diagnosis Osteoarthritis Right Hip Post-op Diagnosis Same Procedure Performed RIGHT Total Hip arthroplasty Surgeon Dale Gibbs MD Production Material Handler Gualberto Anesthesia General Indications Pain and Arthritis Description of Procedure Patient was brought to the operating room #7, and an anesthetic was administered. The patient was placed with the operative Hip up and sterilely prepped and draped in the usual manner. A longitudinal incision was performed. Dissection was carried down to the fascia. A Hardinge type approach was used and the femoral head was dislocated anteriorly. The Femoral head was removed a finger breath above the lesser trochanter. The acetabulum was serially reamed to accept a 50mm component. This was impacted into place and secured with 2 25mm screws. A high wall liner was placed. The femur was reamed and broached to accept a #2 component which was impacted into place. A plus 0 head and neck were placed and the hip was put through full range of motion. The hip was noted to be stable. The wounds were then closed in a layered fashion using #5 ethibond, 2 vicryl, 2-0 vicryl and jose. Patient left the operating room in satisfactory condition. Implants Chidi Z1 stem Chidi multi hole cup Estimated Blood Loss 500 Drains No Packing No Pathology None sent Complications No immediate complications Condition Stable Disposition PACU [facility] Billing Surgery - Charge Forward: Surgery Billing ([id number])
[2025-11-19] MEDS: fentaNYL CITRATE INJ (*CRX) 100 MCG/2 ML VIAL 25 MCG IV PUSH ×8 (10:12→10:45)
[2025-11-19] MEDS: HYDROmorphone HCL INJ (*CRX) 1 MG/ML SYR 0.25 MG IV PUSH ×4 (10:50→11:05)
[2025-11-19] MEDS: diazePAM INJ (*CRX) 10 MG/2 ML SYRINGE 2 MG IV PUSH (11:09)
--- NOTE | 2025-11-19 12:30 | ADMGEN ---
This patient, Nikia Carolina, was admitted to [address] [place] [address] Room 330-02. Patient/family oriented to hospital policies and general routines including ID bracelet, bed and alarms, visiting hours, pain management, procedures, bathroom and other care routines, personal items, smoking policy, room service/diet, and visiting hours. Information on how to activate the Rapid Response Team has been discussed. Patient/Family are encouraged to report perceived risks to care and to ask questions if they do not understand what they are told or what they should do.
[2025-11-19] MEDS: HYDROcodone/acetaminophen (*CRX) 7.5-325 MG TABLET 1 TAB PO ×3 (12:37→20:26)
[2025-11-19] MEDS: CYCLOBENZAPRINE HCL 10 MG TABLET PO ×2 (13:23→22:02)
[2025-11-19] MEDS: LORazepam (*CRX) 0.5 MG TABLET PO ×2 (13:24→20:26)
--- NOTE | 2025-11-19 14:45 | PM.IMCN2 ---
Assessment and Plan Assessment and plan (1) EDUARD (generalized anxiety disorder): Code(s): F41.1 - Generalized anxiety disorder Status: Acute Assessment and Plan: Will restart patient medication monitor closely. Patient lying comfortably at present. (2) HTN (hypertension): Qualifiers: Hypertension type: primary hypertension Qualified Code(s): I10 - Essential (primary) hypertension Code(s): I10 - Essential (primary) hypertension Status: Acute Assessment and Plan: Stable on current medications, will continue current treatment and monitor closely. (3) Mixed hyperlipidemia: Code(s): E78.2 - Mixed hyperlipidemia Status: Acute Assessment and Plan: Stable on current medication, continue current treatment. (4) Chronic GERD: Code(s): K21.9 - Gastro-esophageal reflux disease without esophagitis Status: Acute Assessment and Plan: Will start home medication monitor closely. (5) Osteoarthritis of right hip: Code(s): M16.11 - Unilateral primary osteoarthritis, right hip Status: Acute Assessment and Plan: Status post right total hip arthroplasty. Orthopedic following. Pain control. HPI Date of Consult Consult date: 11/19/25 Requesting Physician: Dale Gibbs MD Primary Care Provider: Anders Hanks MD Consult Narrative Narrative: Nikia Carolina is a 75 year old female was seen for medical consult. Patient had total right hip arthroplasty today. Patient has a history of hypertension gastroesophageal reflux disease and anxiety. At present time patient is lying comfortably in bed. Denies any shortness of breath or chest pain. No abdominal pain, nausea, no vomiting. Patient pain is under control. Review of Systems Review of Systems: All systems reviewed & are unremarkable except as noted in HPI and below (the history and physical examination.) [facility] Past Medical History Medical History Screening for breast cancer Lumbar back pain HTN (hypertension) Chronic GERD Arthritis Anxiety Surgical History Surgical History History of back surgery Vertebral fractures H/O: hysterectomy Family History Family History Father Cerebrovascular accident Mother Breast cancer Hypertension Depression Daughter Thyroid condition Lupus Social History Social History Smoking status: Never smoker Second hand tobacco smoke exposure: No Alcohol intake: current Drinks per week: 1 Alcohol use details: few per months Substance use: never Substance use type: does not use Lack of Transportation: No Lack of Food: Never True Current Housing: I Have Housing Concerned About Future Housing: No Difficulty Paying Gas/Electric Bills: No Difficulty Paying for Meds: No Currently Unemployed: No Education: High School Diploma/GED Difficulty w/ Childcare or Family Care: No Living arrangements: with family Additional living arrangements comments: Occupation/Education: retired Gender identity (if verbalized by the patient): Female Spiritual care concerns: No Meds Home Medications and Allergies Home Medications ?Medication ?Instructions ?Recorded ?Confirmed ?Type pantoprazole 40 mg tablet,delayed 40 mg PO DAILY 12/21/23 10/14/25 History release bisoprolol 5 1 tablet PO DAILY #90 tabs 03/05/25 10/14/25 Rx mg-hydrochlorothiazide 6.25 mg tablet alprazolam 0.5 mg tablet 0.5 mg PO DAILY PRN anxiety #30 06/23/25 10/14/25 Rx tabs meloxicam 15 mg tablet 15 mg PO DAILY #90 tabs 08/25/25 10/14/25 Rx Held on 10/14/25. Instructions: .Provider Order escitalopram oxalate 20 mg tablet 20 mg PO DAILY #90 tabs 09/16/25 11/10/25 Rx (Lexapro) calcium 600 mg capsule 600 mg PO DAILY 10/14/25 11/19/25 History multivitamin with minerals-folic 1 tablet PO DAILY 10/14/25 11/19/25 History acid 12 mcg chewable tablet (Centrum Adults) hydrocodone 7.5 mg-acetaminophen 1 tablet PO Q6H PRN pain #40 tabs 10/16/25 11/10/25 Rx 325 mg tablet Allergies Allergy/AdvReac Type Severity Reaction Status Date / Time sertraline (From Zoloft) AdvReac Mild Headache Verified 11/19/25 12:57 Sulfa (Sulfonamide AdvReac Mild Headache Verified 11/19/25 12:57 Antibiotics) Vital Signs Vital Signs - 24 hr 11/19/25 07:23 11/19/25 10:04 11/19/25 10:15 Temperature 36.3 C L 36.4 C Pulse Rate 57 L 86 82 Respiratory Rate 12 12 Blood Pressure 138/72 125/52 L 100/46 L Pulse Oximetry 100 100 100 Oxygen Delivery Room Air Simple Face Mask Simple Face Mask Oxygen Flow Rate 8 8 11/19/25 10:30 11/19/25 10:46 11/19/25 11:00 Temperature Pulse Rate 82 77 88 Respiratory Rate 11 L 15 16 Blood Pressure 103/54 L 111/56 L 91/70 L Pulse Oximetry 100 100 100 Oxygen Delivery Simple Face Mask Room Air Room Air Oxygen Flow Rate 8 11/19/25 11:15 11/19/25 11:17 11/19/25 11:30 Temperature Pulse Rate 82 77 Respiratory Rate 12 12 Blood Pressure 104/89 100/67 Pulse Oximetry 83 L 98 99 Oxygen Delivery Room Air Simple Face Mask Simple Face Mask Oxygen Flow Rate 10 8 11/19/25 11:45 11/19/25 12:00 11/19/25 12:30 Temperature 36.1 C L Pulse Rate 79 76 83 Respiratory Rate 10 L 12 18 Blood Pressure 99/66 L 100/68 107/57 L Pulse Oximetry 97 97 100 Oxygen Delivery Nasal Cannula Nasal Cannula Oxygen Flow Rate 2 2 11/19/25 12:30 Temperature Pulse Rate Respiratory Rate 18 Blood Pressure Pulse Oximetry 100 Oxygen Delivery Room Air Oxygen Flow Rate Exam Narrative: General appearance: Well-developed, well-nourished Skin: Normal color Head: Normocephalic, nontraumatic Eyes: Clear conjunctiva ENT: Oropharynx normal, ears normal, nose normal Neck: Supple, nontender Chest and respiratory: Airway patent, diminution of air entry bilaterally at the bases, few rales at the bases Heart: Regular rate/rhythm Abdomen: Soft, nontender, no organomegaly, quiet bowel sounds Vascular: Normal peripheral pulses, normal capillary refill. Musculoskeletal: S/p Right hip surgery Neurologic: Alert and oriented ?3, ANODE REBUILDER is normal as tested, no gross motor deficit
[2025-11-19] MEDS: RIVAROXABAN 10 MG TABLET PO (16:07)
[2025-11-19] MEDS: SENNA/DOCUSATE SODIUM TABLET 2 TAB PO (16:07)
[2025-11-20] MEDS: ceFAZolin 2 GM in SODIUM CHLORIDE 0.9% IV 50 ML 100 ML IVPB ×2 (00:20→08:54)
[2025-11-20] MEDS: HYDROcodone/acetaminophen (*CRX) 7.5-325 MG TABLET 1 TAB PO ×4 (00:20→21:06)
[2025-11-20 02:00] VITALS: BP 103/58; PULSE 79; RESP 17; TEMP 36.2; O2SAT 97
[2025-11-20] MEDS: CYCLOBENZAPRINE HCL 10 MG TABLET PO ×3 (05:56→21:06)
[2025-11-20 06:00] VITALS: BP 128/50; PULSE 84; RESP 16; TEMP 36.4; O2SAT 94
[2025-11-20 06:31] LABS: Hematocrit 34.4 % (37.0-47.0); Hemoglobin 11.4 g/dL (12.0-15.0); Immature Granulocyte Percent A 0.6 % (0-0.5); Lymphocytes Absolute Auto 1.54 K/mm3 (0.9-3.2); Mean Corpuscular HGB Conc 33.1 g/dl (32-36); Mean Corpuscular Hemoglobin 29.8 pg (26-34); Mean Corpuscular Volume 90.1 fl (80-100); Nucleated Red Blood Cells Absolute Auto 0.000 K/mm3 (0.0-0.012); Nucleated Red Blood Cells Perc 0.0 % (0.0-0.2); Platelet Count Result 182 k/mm3 (150-375); Red Blood Count 3.82 M/mm3 (4.2-5.4); White Blood Count 17.7 K/mm3 (4.5-10.0)
[2025-11-20 06:57] LABS: Anion Gap 6 mmol/L (4-12); Blood Urea Nitrogen 16 mg/dL (7-17); Calcium 8.5 mg/dL (8.4-10.2); Carbon Dioxide 27 mmol/L (22-30); Chloride 103 mmol/L (98-107); Estimated CRCL calculation 49 ml/min; Estimated Glomerular Filt Rate > 60; Glucose 123 mg/dL (65-110); Potassium 4.3 mmol/L (3.4-5.0); Sodium 136 mmol/L (137-145)
--- NOTE | 2025-11-20 07:47 | P.PNOP_ITS ---
Progress Note: A&P Assessment and Plan (1) Osteoarthritis of right hip: Code(s): M16.11 - Unilateral primary osteoarthritis, right hip Status: Acute Assessment and Plan: Patient underwent a RIGHT Total Hip Arthroplasty for osteoarthritis. She had some pain issues, which are controlled now. Will discharge home pending therapy progress. Subjective Subjective Date/Time Seen: 11/20/25 07:47 Post Op day: 1 Principal diagnosis: Right Total Hip Review of Systems Musculoskeletal: Musculoskeletal: Reports myalgias, Reports arthralgias, Reports joint swelling and Reports stiffness Neurologic: Reports abnormal gait Exam Narrative: Dressing intact. Wiggles toes. Ambulates with a walker. Objective Data Vital Signs Vital Signs: Vital Signs - 24 hr 11/19/25 10:04 11/19/25 10:15 11/19/25 10:30 Temperature 97.6 F Pulse Rate 86 82 82 Respiratory Rate 12 12 11 L Blood Pressure 125/52 L 100/46 L 103/54 L Pulse Oximetry 100 100 100 Oxygen Delivery Simple Face Mask Simple Face Mask Simple Face Mask Oxygen Flow Rate 8 8 8 11/19/25 10:46 11/19/25 11:00 11/19/25 11:15 Temperature Pulse Rate 77 88 82 Respiratory Rate 15 16 12 Blood Pressure 111/56 L 91/70 L 104/89 Pulse Oximetry 100 100 83 L Oxygen Delivery Room Air Room Air Room Air Oxygen Flow Rate 11/19/25 11:17 11/19/25 11:30 11/19/25 11:45 Temperature Pulse Rate 77 79 Respiratory Rate 12 10 L Blood Pressure 100/67 99/66 L Pulse Oximetry 98 99 97 Oxygen Delivery Simple Face Mask Simple Face Mask Nasal Cannula Oxygen Flow Rate 10 8 2 11/19/25 12:00 11/19/25 12:30 11/19/25 12:30 Temperature 97.0 F L Pulse Rate 76 83 Respiratory Rate 12 18 18 Blood Pressure 100/68 107/57 L Pulse Oximetry 97 100 100 Oxygen Delivery Nasal Cannula Room Air Oxygen Flow Rate 2 11/19/25 13:00 11/19/25 14:00 11/19/25 14:25 Temperature 97.0 F L 97.1 F L Pulse Rate 86 78 Respiratory Rate 18 18 Blood Pressure 108/67 121/83 Pulse Oximetry 100 100 Oxygen Delivery Room Air Oxygen Flow Rate 11/19/25 16:29 11/19/25 18:00 11/19/25 20:00 Temperature 98.0 F 97.6 F Pulse Rate 76 78 83 Respiratory Rate 16 12 18 Blood Pressure 113/57 L 121/50 L Pulse Oximetry 100 93 96 Oxygen Delivery Room Air Oxygen Flow Rate 11/19/25 20:27 11/20/25 02:00 11/20/25 06:00 Temperature 97.1 F L 97.5 F L Pulse Rate 83 79 84 Respiratory Rate 18 17 16 Blood Pressure 118/54 L 103/58 L 128/50 L Pulse Oximetry 96 97 94 Oxygen Delivery Oxygen Flow Rate Intake/Output Intake/Output: Intake & Output 11/17/25 11/18/25 11/19/25 11/20/25 23:59 23:59 23:59 23:59 Intake Total 1997 50 Balance 1997 50 Meds/Results Medications: Active Medications Generic Name Dose Route Start Last Admin Trade Name Freq PRN Reason Stop Dose Admin Hydrocodone Bitart/Acetaminophen 1 tab 11/19/25 12:15 Hydrocodone/Acetaminophen (*Crx) 5-325 Mg Tablet PO Q4H PRN Pain Rated 4-6 Hydrocodone Bitart/Acetaminophen 1 tab 11/19/25 12:15 11/20/25 04:32 Hydrocodone/Acetaminophen (*Crx) 7.5-325 Mg Tablet PO 1 tab Q4H PRN Administration Pain Rated 7-10 Bisoprolol Fumarate 5 mg 11/20/25 09:00 Bisoprolol Fumarate 5 Mg Tablet PO DAILY FRANKI Calcium Carbonate 500 mg 11/20/25 09:00 Calcium Carbonate (Oscal) 500 Mg Tablet PO DAILY FRANKI Cyclobenzaprine HCl 10 mg 11/19/25 14:00 11/20/25 05:56 Cyclobenzaprine Hcl 10 Mg Tablet PO 10 mg Q8HR FRANKI Administration Escitalopram Oxalate 20 mg 11/20/25 09:00 Escitalopram Oxalate 10 Mg Tablet PO DAILY FRANKI Hydrochlorothiazide 6.25 mg 11/20/25 09:00 Hydrochlorothiazide 6.25 Mg Tablet PO QAM FRANKI Cefazolin Sodium 2 gm/ Sodium 50 mls @ 100 mls/hr 11/19/25 16:00 11/20/25 00:50 Chloride IVPB 11/20/25 08:29 Infused Q8H FRANKI Infusion Lorazepam 0.5 mg 11/19/25 13:02 11/19/25 20:26 Lorazepam (*Crx) 0.5 Mg Tablet PO 0.5 mg Q6H PRN Administration Anxiety Multivitamins/Minerals 1 tab 11/20/25 09:00 Multivitamins /C Lutein (Centrum Silver) Tablet *Bkc PO DAILY [facility] Naloxone HCl 0.1 mg 11/19/25 12:15 Naloxone Hcl 0.4 Mg/Ml Vial IV PUSH Q2M PRN Opiate Reversal Ondansetron HCl 4 mg 11/19/25 12:15 Ondansetron Inj 4 Mg/2 Ml Vial IV PUSH Q4H PRN Nausea And Vomiting Pantoprazole Sodium 40 mg 11/20/25 09:00 Pantoprazole 40 Mg Tablet PO DAILY [facility] Polyethylene Glycol 17 gm 11/20/25 09:00 Polyethylene Glycol 3350 17 Gm Powd.Pack PO QAM [facility] Rivaroxaban 10 mg 11/19/25 17:00 11/19/25 16:07 Rivaroxaban 10 Mg Tablet PO 10 mg DAILY@1700 [facility] Administration Senna/Docusate Sodium 2 tab 11/19/25 17:00 11/19/25 16:07 Senna/Docusate Sodium Tablet PO 2 tab BID FRANKI Administration Radiology Results: ITS Impressions Intraoperative X-Ray 11/19/25 10:11 IMPRESSION: 1. Expected appearance during right total hip arthroplasty. Labs Labs: Laboratory Results - last 24 hr 11/20/25 06:02 WBC 17.7 H RBC 3.82 L Hgb 11.4 L Hct 34.4 L MCV 90.1 MCH 29.8 MCHC 33.1 RDW 12.6 Plt Count 182 MPV 10.1 Immature Gran % (Auto) 0.6 H Neut % (Auto) 78.2 H Lymph % (Auto) 8.7 L [place] % (Auto) 12.3 H Eos % (Auto) 0.0 Baso % (Auto) 0.2 Lymph # (Auto) 1.54 [place] # (Auto) 2.2 H Eos # (Auto) 0.0 Baso # (Auto) 0.0 Abs Immat Gran (auto) 0.10 H Absolute Neuts (auto) 13.8 H Absolute Nucleated RBC 0.000 Nucleated RBC % 0.0 Sodium 136 L Potassium 4.3 Chloride 103 Carbon Dioxide 27 Anion Gap 6 BUN 16 Creatinine 0.76 Estim Creat Clear Calc 49 Estimated GFR > 60 Glucose 123 H Calcium 8.5
[2025-11-20] MEDS: PANTOPRAZOLE 40 MG TABLET PO (08:56)
[2025-11-20] MEDS: SENNA/DOCUSATE SODIUM TABLET 2 TAB PO ×2 (08:57→17:15)
[2025-11-20] MEDS: hydroCHLOROthiazide 6.25 MG TABLET PO (09:02)
[2025-11-20] MEDS: ESCITALOPRAM OXALATE 10 MG TABLET 20 MG PO (09:02)
[2025-11-20] MEDS: MULTIVITAMINS /C LUTEIN (CENTRUM SILVER) TABLET *BKC 1 TAB PO (09:02)
[2025-11-20] MEDS: CALCIUM CARBONATE (OSCAL) 500 MG TABLET PO (09:02)
[2025-11-20 09:03] VITALS: PULSE 79
--- NOTE | 2025-11-20 09:07 | P.PNIM_ITS ---
Assessment and Plan Assessment and Plan (1) EDUARD (generalized anxiety disorder): Code(s): F41.1 - Generalized anxiety disorder Status: Acute Assessment and Plan: Will restart patient medication monitor closely. Patient lying comfortably at present. (2) HTN (hypertension): Qualifiers: Hypertension type: primary hypertension Qualified Code(s): I10 - Essential (primary) hypertension Code(s): I10 - Essential (primary) hypertension Status: Acute Assessment and Plan: Stable on current medications, will continue current treatment and monitor clos mahnaz. (3) Mixed hyperlipidemia: Code(s): E78.2 - Mixed hyperlipidemia Status: Acute Assessment and Plan: Stable on current medication, continue current treatment. (4) Chronic GERD: Code(s): K21.9 - Gastro-esophageal reflux disease without esophagitis Status: Acute Assessment and Plan: Will start home medication monitor closely. (5) Osteoarthritis of right hip: Code(s): M16.11 - Unilateral primary osteoarthritis, right hip Status: Acute Assessment and Plan: Status post right total hip arthroplasty. Orthopedic following. Pain control. (6) Leukocytosis: Code(s): D72.829 - Elevated white blood cell count, unspecified Status: Acute Assessment and Plan: Patient WBC count went up to 17. Patient is clinically stable. Will do blood and urine culture. Will give ceftriaxone for now. Repeat labs in the Plan Code status full DVT prophylaxis Xeralto Subjective Date/time seen: 11/20/25 09:07 Interval history: Patient was seen during the morning rounds today. Patient is feeling better. Pain is under control. No shortness of breath or chest pain. Review of Systems Review of Systems: All systems reviewed & are unremarkable except as noted in HPI and below (the history and physical examination.) Exam Narrative: General appearance: Well-developed, well-nourished Skin: Normal color Head: Normocephalic, nontraumatic Eyes: Clear conjunctiva ENT: Oropharynx normal, ears normal, nose normal Neck: Supple, nontender Chest and respiratory: Airway patent, diminution of air entry bilaterally at the bases, few rales at the bases Heart: Regular rate/rhythm Abdomen: Soft, nontender, no organomegaly, quiet bowel sounds Vascular: Normal peripheral pulses, normal capillary refill. Musculoskeletal: S/p Right hip surgery Neurologic: Alert and oriented ?3, [employer] is normal as tested, no gross motor deficit Objective Data Vital Signs Vital Signs: Vital Signs - 24 hr 11/19/25 10:04 11/19/25 10:15 11/19/25 10:30 Temperature 36.4 C Pulse Rate 86 82 82 Respiratory Rate 12 12 11 L Blood Pressure 125/52 L 100/46 L 103/54 L Pulse Oximetry 100 100 100 Oxygen Delivery Simple Face Mask Simple Face Mask Simple Face Mask Oxygen Flow Rate 8 8 8 11/19/25 10:46 11/19/25 11:00 11/19/25 11:15 Temperature Pulse Rate 77 88 82 Respiratory Rate 15 16 12 Blood Pressure 111/56 L 91/70 L 104/89 Pulse Oximetry 100 100 83 L Oxygen Delivery Room Air Room Air Room Air Oxygen Flow Rate 11/19/25 11:17 11/19/25 11:30 11/19/25 11:45 Temperature Pulse Rate 77 79 Respiratory Rate 12 10 L Blood Pressure 100/67 99/66 L Pulse Oximetry 98 99 97 Oxygen Delivery Simple Face Mask Simple Face Mask Nasal Cannula Oxygen Flow Rate 10 8 2 11/19/25 12:00 11/19/25 12:30 11/19/25 12:30 Temperature 36.1 C L Pulse Rate 76 83 Respiratory Rate 12 18 18 Blood Pressure 100/68 107/57 L Pulse Oximetry 97 100 100 Oxygen Delivery Nasal Cannula Room Air Oxygen Flow Rate 2 11/19/25 13:00 11/19/25 14:00 11/19/25 14:25 Temperature 36.1 C L 36.2 C L Pulse Rate 86 78 Respiratory Rate 18 18 Blood Pressure 108/67 121/83 Pulse Oximetry 100 100 Oxygen Delivery Room Air Oxygen Flow Rate 11/19/25 16:29 11/19/25 18:00 11/19/25 20:00 Temperature 36.7 C 36.4 C Pulse Rate 76 78 83 Respiratory Rate 16 12 18 Blood Pressure 113/57 L 121/50 L Pulse Oximetry 100 93 96 Oxygen Delivery Room Air Oxygen Flow Rate 11/19/25 20:27 11/20/25 02:00 11/20/25 06:00 Temperature 36.2 C L 36.4 C L Pulse Rate 83 79 84 Respiratory Rate 18 17 16 Blood Pressure 118/54 L 103/58 L 128/50 L Pulse Oximetry 96 97 94 Oxygen Delivery Oxygen Flow Rate 11/20/25 09:03 Temperature Pulse Rate 79 Respiratory Rate Blood Pressure Pulse Oximetry Oxygen Delivery Oxygen Flow Rate Intake/Output Intake/Output: Intake & Output 11/17/25 11/18/25 11/19/25 11/20/25 23:59 23:59 23:59 23:59 Intake Total 1997 50 Balance 1997 50 Meds/Results Medications: Active Medications Generic Name Dose Route Start Last Admin Trade Name Freq PRN Reason Stop Dose Admin Hydrocodone Bitart/Acetaminophen 1 tab 11/19/25 12:15 Hydrocodone/Acetaminophen (*Crx) 5-325 Mg Tablet PO Q4H PRN Pain Rated 4-6 Hydrocodone Bitart/Acetaminophen 1 tab 11/19/25 12:15 11/20/25 09:03 Hydrocodone/Acetaminophen (*Crx) 7.5-325 Mg Tablet PO 1 tab Q4H PRN Administration Pain Rated 7-10 Bisoprolol Fumarate 5 mg 11/20/25 09:00 11/20/25 09:03 Bisoprolol Fumarate 5 Mg Tablet PO 5 mg DAILY [facility]ANKI Administration Calcium Carbonate 500 mg 11/20/25 09:00 11/20/25 09:02 Calcium Carbonate (Oscal) 500 Mg Tablet PO 500 mg DAILY FRANKI Administration Cyclobenzaprine HCl 10 mg 11/19/25 14:00 11/20/25 05:56 Cyclobenzaprine Hcl 10 Mg Tablet PO 10 mg Q8HR FRANKI Administration Escitalopram Oxalate 20 mg 11/20/25 09:00 11/20/25 09:02 Escitalopram Oxalate 10 Mg Tablet PO 20 mg DAILY [facility]ANKI Administration Hydrochlorothiazide 6.25 mg 11/20/25 09:00 11/20/25 09:02 Hydrochlorothiazide 6.25 Mg Tablet PO 6.25 mg QAM FRANKI Administration Ceftriaxone Sodium 1 gm/ 50 mls @ 100 mls/hr 11/20/25 09:05 Sodium Chloride IVPB Q24H [facility]ANKI Lorazepam 0.5 mg 11/19/25 13:02 11/19/25 20:26 Lorazepam (*Crx) 0.5 Mg Tablet PO 0.5 mg Q6H PRN Administration Anxiety Miscellaneous Information 1 each 11/20/25 07:53 Central Supply Item-Silver Dressing Is Not A Pharmacy Item. Please Obtain From [facility] XX 11/21/25 07:52 PRN PRN Informational Multivitamins/Minerals 1 tab 11/20/25 09:00 11/20/25 09:02 Multivitamins /C Lutein (Centrum Silver) Tablet *Bkc PO 1 tab DAILY [facility]ANKI Administration Naloxone HCl 0.1 mg 11/19/25 12:15 Naloxone Hcl 0.4 Mg/Ml Vial IV PUSH Q2M PRN Opiate Reversal Ondansetron HCl 4 mg 11/19/25 12:15 Ondansetron Inj 4 Mg/2 Ml Vial IV PUSH Q4H PRN Nausea And Vomiting Pantoprazole Sodium 40 mg 11/20/25 09:00 11/20/25 08:56 Pantoprazole 40 Mg Tablet PO 40 mg DAILY [facility]ANKI Administration Polyethylene Glycol 17 gm 11/20/25 09:00 11/20/25 09:03 Polyethylene Glycol 3350 17 Gm Powd.Pack PO 17 gm QAM FRANKI Administration Rivaroxaban 10 mg 11/19/25 17:00 11/19/25 16:07 Rivaroxaban 10 Mg Tablet PO 10 mg DAILY@1700 [facility]I Administration Senna/Docusate Sodium 2 tab 11/19/25 17:00 11/20/25 08:57 Senna/Docusate Sodium Tablet PO 2 tab BID FRANKI Administration Radiology Results: ITS Impressions Intraoperative X-Ray 11/19/25 10:11 IMPRESSION: 1. Expected appearance during right total hip arthroplasty. Labs Labs: Laboratory Results - last 24 hr 11/20/25 06:02 WBC 17.7 H RBC 3.82 L Hgb 11.4 L Hct 34.4 L MCV 90.1 MCH 29.8 MCHC 33.1 RDW 12.6 Plt Count 182 MPV 10.1 Immature Gran % (Auto) 0.6 H Neut % (Auto) 78.2 H Lymph % (Auto) 8.7 L [place] % (Auto) 12.3 H Eos % (Auto) 0.0 Baso % (Auto) 0.2 Lymph # (Auto) 1.54 [place] # (Auto) 2.2 H Eos # (Auto) 0.0 Baso # (Auto) 0.0 Abs Immat Gran (auto) 0.10 H Absolute Neuts (auto) 13.8 H Absolute Nucleated RBC 0.000 Nucleated RBC % 0.0 Sodium 136 L Potassium 4.3 Chloride 103 Carbon Dioxide 27 Anion Gap 6 BUN 16 Creatinine 0.76 Estim Creat Clear Calc 49 Estimated GFR > 60 Glucose 123 H Calcium 8.5
[2025-11-20 14:00] VITALS: BP 100/60; PULSE 80; RESP 14; TEMP 36.3; O2SAT 99
[2025-11-20] MEDS: RIVAROXABAN 10 MG TABLET PO (17:15)
[2025-11-20 20:00] VITALS: PULSE 80; RESP 14; O2SAT 99
[2025-11-20 20:10] VITALS: BP 137/58; PULSE 89; RESP 18; TEMP 36.9; O2SAT 96
[2025-11-20] MEDS: LORazepam (*CRX) 0.5 MG TABLET PO (21:06)
[2025-11-21 05:15] VITALS: BP 106/53; PULSE 98; RESP 20; TEMP 36.5; O2SAT 94
[2025-11-21 05:34] LABS: Hematocrit 29.5 % (37.0-47.0); Hemoglobin 9.9 g/dL (12.0-15.0); Immature Granulocyte Percent A 0.5 % (0-0.5); Lymphocytes Absolute Auto 1.65 K/mm3 (0.9-3.2); Mean Corpuscular HGB Conc 33.6 g/dl (32-36); Mean Corpuscular Hemoglobin 30.1 pg (26-34); Mean Corpuscular Volume 89.7 fl (80-100); Nucleated Red Blood Cells Absolute Auto 0.000 K/mm3 (0.0-0.012); Nucleated Red Blood Cells Perc 0.0 % (0.0-0.2); Platelet Count Result 163 k/mm3 (150-375); Red Blood Count 3.29 M/mm3 (4.2-5.4); White Blood Count 13.6 K/mm3 (4.5-10.0)
[2025-11-21 05:59] LABS: Alanine Aminotransferase 12 U/L (6-35); Albumin Level 3.1 g/dL (3.5-5.1); Alkaline Phosphatase 46 U/L (38-126); Anion Gap 4 mmol/L (4-12); Aspartate Amino Transferase 44 U/L (14-36); Bilirubin,Total 0.7 mg/dL (0.2-1.3); Blood Urea Nitrogen 14 mg/dL (7-17); Calcium 8.5 mg/dL (8.4-10.2); Carbon Dioxide 31 mmol/L (22-30); Chloride 101 mmol/L (98-107); Estimated CRCL calculation 48 ml/min; Estimated Glomerular Filt Rate > 60; Glucose 120 mg/dL (65-110); Potassium 3.6 mmol/L (3.4-5.0); Sodium 136 mmol/L (137-145); Total Protein 5.8 g/dL (6.3-8.2)
[2025-11-21] MEDS: CYCLOBENZAPRINE HCL 10 MG TABLET PO (06:03)
--- NOTE | 2025-11-21 07:11 | PM.DS ---
DS: Admitting Diagnosis Discharge Date 11/21/2025 Admitting Diagnosis Osteoarthritis Right Hip DS: Discharge Diagnosis Discharge Diagnosis (1) History of right hip replacement: Code(s): Z96.641 - Presence of right artificial hip joint Status: Acute DS: Summary Hospital Course Hospital Course: Patient underwent Right Total Hip Arthroplasty for Osteoarthritis. She progressed slowly secondary to dehydration and weakness. At this point she may be dismissed home. F/U 2 weeks. Time Spent with Patient Time attestation: Total time spent providing and/or coordinating discharge services: Exam Narrative: WIggles toes. Dressing intact. Ambulating with a walker. DS: Data Data Completed and Pending Labs on day of discharge: Labs from last 24 hours 11/21/25 05:24 WBC 13.6 H RBC 3.29 L Hgb 9.9 L Hct 29.5 L MCV 89.7 MCH 30.1 MCHC 33.6 RDW 12.6 Plt Count 163 MPV 9.8 Immature Gran % (Auto) 0.5 Neut % (Auto) 71.0 Lymph % (Auto) 12.2 L [place] % (Auto) 15.2 H Eos % (Auto) 0.8 Baso % (Auto) 0.3 Lymph # (Auto) 1.65 [place] # (Auto) 2.1 H Eos # (Auto) 0.1 Baso # (Auto) 0.0 Abs Immat Gran (auto) 0.07 H Absolute Neuts (auto) 9.6 H Absolute Nucleated RBC 0.000 Nucleated RBC % 0.0 Sodium 136 L Potassium 3.6 Chloride 101 Carbon Dioxide 31 H Anion Gap 4 BUN 14 Creatinine 0.79 Estim Creat Clear Calc 48 Estimated GFR > 60 Glucose 120 H Calcium 8.5 Total Bilirubin 0.7 AST 44 H ALT 12 Alkaline Phosphatase 46 Total Protein 5.8 L Albumin 3.1 L Discharge Plan Discharge Patient Disposition: Home Discharge Instructions: Dr. Dale Gibbs M.D [id number] [address] POST-OPERATIVE DISCHARGE INSTRUCTIONS TOTAL HIP ARTHROPLASTY 1. Move toes/feet up and down every hour while awake. 2. Be up walking every hour while awake. 3. Use walker full time staff interpreter if instructed to use walker full time staff interpreter.When you are allowed to use the cane, use the cane in the opposite hand. 4. When resting, do not rest in the chair. Rather, lie on your back, with back flat, and the leg elevated above heart to minimize swelling. You may put a pillow under your head. Do not rest in a chair. Resting in the chair results in swelling in the leg. Significant swelling could indicate a blood clot and if this occurs, call the office (or go to the ER) to have a venous ultrasound performed. Its ok to sit in the chair to eat and use the toilet and to receive a guest but sitting in a chair will cause your leg to swell. so try to minimize sitting in a chair. 5. Wound Care: Apply a folded 4x4 sponge to incision and hold with crossing strips of 1 inch Transpore tape. 6. Follow weight bearing status as instructed: 7. May shower. Remove dressing before shower and reapply dressing after shower. Patient Instructions: Rivaroxaban (By mouth), Pain Management in Older Adults (DC), Chronic Pain (DC), Medication Safety for Older Adults (GEN) Patient Language: Slovak Follow-up/Referrals: Dale Gibbs MD [Physician, Orthopedics] Discharge Medications: New cyclobenzaprine 10 mg tablet 10 mg PO HS PRN (Reason: muscle spasm) Qty: 30 0RF hydrocodone-acetaminophen 7.5-325 mg tablet 1 tablet PO Q6H PRN (Reason: pain) Qty: 40 0RF Xarelto 10 mg tablet 10 mg PO DAILY Qty: 20 0RF Rx Instructions: 20 days then switch to aspirin doxycycline hyclate 100 mg tablet 100 mg PO BID Qty: 20 0RF Continued pantoprazole 40 mg tablet,delayed release (DR/EC) 40 mg PO DAILY bisoprolol-hydrochlorothiazide 5-6.25 mg tablet 1 tablet PO DAILY Qty: 90 2RF alprazolam 0.5 mg tablet 0.5 mg PO DAILY PRN (Reason: anxiety) Qty: 30 0RF Centrum Adults 12 mcg tablet,chewable 1 tablet PO DAILY calcium 600 mg capsule 600 mg PO DAILY meloxicam 15 mg tablet 15 mg PO DAILY Qty: 90 0RF Patient Comments: HOLD for [address] Gibbs escitalopram oxalate [Lexapro] 20 mg tablet 20 mg PO DAILY Qty: 90 1RF Patient Comments: TAKES NOW IN PM hydrocodone-acetaminophen 7.5-325 mg tablet 1 tablet PO Q6H PRN (Reason: pain) Qty: 40 0RF
[2025-11-21 09:27] VITALS: PULSE 89
[2025-11-21] MEDS: CALCIUM CARBONATE (OSCAL) 500 MG TABLET PO (09:27)
[2025-11-21] MEDS: SENNA/DOCUSATE SODIUM TABLET 2 TAB PO (09:27)
[2025-11-21] MEDS: hydroCHLOROthiazide 6.25 MG TABLET PO (09:27)
[2025-11-21] MEDS: PANTOPRAZOLE 40 MG TABLET PO (09:27)
[2025-11-21] MEDS: MULTIVITAMINS /C LUTEIN (CENTRUM SILVER) TABLET *BKC 1 TAB PO (09:27)
[2025-11-21] MEDS: ESCITALOPRAM OXALATE 10 MG TABLET 20 MG PO (09:27)
== END 2025-11-21 12:20 | disposition home or self-care (01) ==
LOC: ANHSURGERY 05:48 → ANH3MEDSUR 12:24
PROVIDERS: Internal Medicine; PCP Family Medicine; Visit Provider Orthopaedic Surgery
PROC: (CPT 27130; principal; 2025-11-19 07:30)
DX: M16.11 Unilateral primary osteoarthritis, right hip (principal); D72.829 Elevated white blood cell count, unspecified; I10 Essential (primary) hypertension; E78.2 Mixed hyperlipidemia; K21.9 Gastro-esophageal reflux disease without esophagitis; F41.1 Generalized anxiety disorder
CPT/HCPCS: 27130; 36415; 80048; 80053; 85025; 97110; 97116; 97161; 97165; 97530; 97535; 99199; J0690; A9270; C1776; J1100; J1171; J2003; J2250; J2270; J2405; J2704; J3010; J3290; J3360; J3373; J7050; J7120